=== PATIENT | female | born 1980 | race Caucasian/White ===

== ENCOUNTER 2017-04-25 00:09 | Inpatient (IN) | payer BC ==
[2017-04-25 00:10] VITALS: BMI 33.8
[2017-04-25] MEDS ORDERED: Piperacill/Tazo 4.5gm in NS 4.5 GM/100 ML BAG IVPB STA (00:55)
[2017-04-25 02:18] LABS: BASO # 0.01 K/mm3 (0.0-2.0); BASO % 0.1 % (0.0-3.0); EOS % 0.2 % (1.5-5.0); GRAN # 18.86 (1.4-6.5); GRAN % 95.5 % (50.0-68.0); HEMATOCRIT 41.5 % (36.0-48.0); LYMPH # 0.6 (1.2-3.4); MEAN CORPUSCULAR HEMOGLOBIN 29.5 pg (25.0-35.0); MEAN CORPUSCULAR HGB CONC 34.7 g/dl (31.0-37.0); MEAN PLATELET VOLUME 10.1 fl (7.0-11.0); MONO # 0.2 (0.1-0.6); MONO % 1.2 % (1.0-6.0); PLATELET COUNT 291 10^3/uL (120.0-450.0); RED CELL DISTRIBUTION WIDTH 13.8 % (11.5-14.5); WHITE BLOOD COUNT 19.7 10^3/ul (4.5-11.0)
[2017-04-25 02:25] LABS: VENOUS BLOOD GAS BASE EXCESS -1.5 mmol/L (0.0-2.0); VENOUS BLOOD PH 7.37 (7.32-7.43)
[2017-04-25 02:34] LABS: INR 0.99 (0.93-1.08)
[2017-04-25 02:37] LABS: ALB/GLOB RATIO 1.4 (1.1-1.8); ALKALINE PHOSPHATASE 76 U/L (38-126); ALT/SGPT 42 U/L (7-56); AST/SGOT 31 U/L (14-36); BILIRUBIN,TOTAL 0.5 mg/dL (0.2-1.3); BLOOD UREA NITROGEN 17 mg/dL (7-21); CALCIUM 9.7 mg/dL (8.4-10.5); CARBON DIOXIDE 23 mmol/L (21-33); GFR AFRICAN-AMERICAN > 60; GLUCOSE,RANDOM 104 mg/dL (70-110); SODIUM 136 mmol/L (132-148); TOTAL PROTEIN 7.3 g/dL (5.8-8.3)
[2017-04-25 02:42] LABS: CHLORIDE 100 mmol/L (98-107)
--- NOTE | 2017-04-25 02:47 | ED PDOC ---
Arrival/HPI - General Chief Complaint: Abdominal Pain Time Seen by Provider: 04/25/17 00:53 - History of Present Illness Narrative History of Present Illness (Text): 04/25/17 02:44 36yo female with fevers, chills, nausea, non-bilious non-bloody vomiting, and watery diarrhea for one day. States her symptoms are accompanied by lower abdominal pain. Patient states she had liposuction procedure 2 weeks ago. No relieving or exacerbating factors. No other complaints. Past Medical History - Provider Review Nursing Documentation Reviewed: Yes - Cardiac Hx Cardiac Disorders: Yes Hx Hypertension: Yes - Pulmonary Hx Respiratory Disorders: No - Neurological Hx Neurological Disorder: No - HEENT Hx HEENT Disorder: No - Renal Hx Renal Disorder: No - Endocrine/Metabolic Hx Endocrine Disorders: No - Hematological/Oncological Hx Blood Disorders: No - Integumentary Hx Dermatological Disorder: No - Musculoskeletal/Rheumatological Hx Musculoskeletal Disorders: No - Gastrointestinal Hx Gastrointestinal Disorders: No - Genitourinary/Gynecological Hx Genitourinary Disorders: No - Psychiatric Hx Psychophysiologic Disorder: No Hx Substance Use: No - Surgical History Other/Comment: laser lipo Family/Social History Family/Social History: Unknown Family HX Smoking Status: Never Smoked Hx Alcohol Use: No Hx Substance Use: No Allergies/Home Meds Allergies/Adverse Reactions: Allergies shrimp Allergy (Verified 05/18/16 10:42) ANAPHYLAXIS seafood Allergy (Uncoded 05/18/16 10:42) ANAPHYLAXIS Home Medications: Home Meds Medication Instructions Recorded Confirmed Hydrocodone/Acetaminophen [[place] 1 each PO Q6H PRN 04/25/17 04/25/17 10-325 Tablet] Physical Exam - Physical Exam Narrative Physical Exam (Text): - Review of Systems Constitutional: fevers, chills. absent: Fatigue, Weight Change Eyes: Normal ENT: denies sore throat, denies tristhmus Respiratory: Normal. absent: SOB, Cough, Sputum Cardiovascular: absent: Chest Pain, Palpitations, Syncope Gastrointestinal: Abdominal Pain, Diarrhea, Nausea, Vomiting Genitourinary: Normal. absent: Dysuria, Frequency, Hematuria, vaginal bleeding Musculoskeletal: Normal. absent: Arthralgias, Back Pain, Neck Pain Skin: no rashes, no erythema Neurological: absent: Focal Weakness Endocrine: Normal Hemo/Lymphatic: Normal Psychiatric: No suicidal or homicidal ideations Physical exam Patient appears age appropriate in no distress, speaking full sentences without difficulty - Systems Exam Head: Present: Atraumatic, Normocephalic Pupils: Present: PERRL Extroacular Muscles: Present: EOMI Conjunctiva: Present: Normal Mouth: Present: Moist Mucous Membranes Neck: Present: Normal Range of Motion. No: MIDLINE TENDERNESS, Paraspinal Tenderness Respiratory/Chest: Present: Clear to Auscultation, Good Air Exchange. No: Respiratory Distress, Accessory Muscle Use, Tachypneic Cardiovascular: Present: Regular Rate and Rhythm, Normal S1, S2, Peripheal Pulses Present. No: Murmurs Abdomen: Present: Diffusely tender abdomen, mostly in the lower quadrants. LLQ with a draining pustule. No: Distention, Peritoneal Signs, Rebound, Guarding Back: Present: Normal Inspection. No: Midline Tenderness, Paraspinal Tenderness Upper Extremity: Present: Normal Inspection. No: Cyanosis, Edema Lower Extremity: Present: Normal Inspection. No: Edema Neurological: Present: GCS=15, Speech Normal, cranial nerves II through XII fully intact with no cerebellar abnormality, neurosensory fully intact. No focal neurological deficits. Skin: Present: Warm, Dry, Normal Color. No: Rashes Lymphatic: Present: OX3, NI, NC Psychiatric: Present: Alert, Oriented x 3, Normal Insight, Normal Concentration Vital Signs Reviewed: Yes Vital Signs Temp Pulse Resp BP Pulse Ox 04/25/17 06:31 104 H 16 112/70 97 04/25/17 05:27 97.6 F 103 H 18 118/69 100 04/25/17 04:10 99.0 F 112 H 16 106/58 L 98 04/25/17 02:00 107 H 16 118/76 99 04/25/17 00:34 102.5 F H 123 H 22 122/80 99 Temperature: Febrile Pulse: Tachycardic Respiratory Rate: Normal Appearance: Positive for: Non-Toxic Pain Distress: Mild Mental Status: Positive for: Alert and Oriented X 3 Medical Decision Making ED Course and Treatment: 04/25/17 02:51 36yo female, recent liposuction surgery, with fevers, chills, fever and tachycardia. pt has diffuse abd tenderness to palpation abx, fluids, tylenol, labs, imaging ordered pt's lactate high, leukocytosis also noted 04/25/17 02:28: code sepsis called ct pending CT Abdomen and Pelvis With Intravenous Contrast IMPRESSION: 1. Abdominal wall collection. DDX: Seroma, resolving hematoma, abscess. Clinical correlation is needed. 2. Partial bowel malrotation. 3. Incidental/non-acute findings are described above. Dictated and Authenticated by: Chandler Baker MD 04/25/2017 5:41 AM Eastern Time ([place] & [place]) 04/25/17 05:52: Dr. Mendoza and ophthalmic surgical assistant nate. 04/25/17 06:33 seen by ophthalmic surgical assistant meredith Mendoza in detail, recommends vanc as well. states to admit to service Dr. Jadyn sullivan, awaiting callback pt's fever decreased LA trending down 04/25/17 06:[address] Salamanca, accepted pt to her service, asked for Dr. Montes consult pt aware of and agrees with plan - Lab Interpretations Lab Results: 04/25/17 01:30 04/25/17 01:30 Lab Results 04/25/17 04:41: pO2 71 H, VBG pH 7.37, VBG pCO2 41.0, VBG HCO3 23.7, VBG Total CO2 25.0, VBG O2 Sat (Calc) 96.2 H, VBG Base Excess -1.5 L, VBG Potassium 3.5 L , Sodium 135.0, Chloride 103.0, Glucose 109 H, Lactate 2.9 H, FiO2 21.0, Venous Blood Potassium 3.5 L 04/25/17 01:30: Sodium 136, Chloride 100, Potassium 4.0, Carbon Dioxide 23, Anion Gap 17, BUN 17, Creatinine 1.0, Est GFR ( Amer) > 60, Est GFR (Non- Af Amer) > 60, Random Glucose 104, Calcium 9.7, Total Bilirubin 0.5, AST 31, ALT 42, Alkaline Phosphatase 76, Total Protein 7.3, Albumin 4.2, Globulin 3.1, Albumin/Globulin Ratio 1.4 04/25/17 01:30: pO2 60 H, VBG pH 7.37, VBG pCO2 41.0, VBG HCO3 23.7, VBG Total CO2 25.0, VBG O2 Sat (Calc) 93.9 H, VBG Base Excess -1.5 L, VBG Potassium 4.1, Sodium 135.0, Chloride 102.0, Glucose 109 H, Lactate 3.3 H, FiO2 21.0, Venous Blood Potassium 4.1 04/25/17 01:30: PT 10.7, INR 0.99, APTT 22.0 L 04/25/17 01:30: WBC 19.7 H, RBC 4.88, Hgb 14.4, Hct 41.5, MCV 85.0, MCH 29.5, MCHC 34.7, RDW 13.8, Plt Count 291, MPV 10.1, Gran % 95.5 H, Lymph % (Auto) 3.0 L, [place] % (Auto) 1.2, Eos % (Auto) 0.2 L, Baso % (Auto) 0.1, Gran # 18.86 H, Lymph # 0.6 L, [place] # 0.2, Eos # 0.0, Baso # 0.01, Neutrophils % (Manual) 90 H, Band Neutrophils % 4 H, Lymphocytes % (Manual) 4 L, Monocytes % (Manual) 1, Eosinophils % (Manual) 1, Platelet Evaluation Normal - RAD Interpretation Radiology Orders: 04/25/17 00:54 ABD & PELVIS IV CONTRAST ONLY [CT] Stat 04/25/17 00:55 CHEST PORTABLE [RAD] Stat - Medication Orders Current Medication Orders: Vancomycin HCl (Vancomycin 1gm) 1 gm in 250 mls @ 133.333 mls/hr IVPB STAT STA PRN Reason: Protocol Stop: 04/25/17 08:22 Discontinued Medications Acetaminophen (Tylenol 325mg Tab) 975 mg PO STAT STA Stop: 04/25/17 00:55 Last Admin: 04/25/17 01:57 Dose: 975 mg Re-Assess: JAZ Pain/Vitals Document 04/25/17 02:57 SC (Rec: 04/25/17 03:51 SC [id number]) Pain Reassessment Is This A Pain ReAssessment? No Hydromorphone HCl (Dilaudid) 0.5 mg IVP STAT STA Stop: 04/25/17 06:23 Last Admin: 04/25/17 06:28 Dose: 0.5 mg Hydromorphone HCl (Dilaudid) Confirm Administered Dose 1 mg .ROUTE .STK-MED ONE Stop: 04/25/17 06:26 Last Admin: 04/25/17 06:29 Dose: Piperacillin Sod/Tazobactam Sod (Zosyn 4.5 Gm In Ns 100ml) 4.5 gm in 100 mls @ 200 mls/hr IVPB STAT STA PRN Reason: Protocol Stop: 04/25/17 01:24 Last Admin: 04/25/17 01:58 Dose: 200 mls/hr Sodium Chloride (Sodium Chloride 0.9%) 3,000 mls @ 3,000 mls/hr IV .Q1H STA Stop: 04/25/17 04:52 Last Admin: 04/25/17 03:50 Dose: 3,000 mls/hr Iohexol (Omnipaque 350 100 Ml) Confirm Administered Dose 350 mg .ROUTE .STK-MED ONE Stop: 04/25/17 03:10 Ketorolac Tromethamine (Toradol) 30 mg IVP STAT STA Stop: 04/25/17 00:55 Last Admin: 04/25/17 01:57 Dose: 30 mg Re-Assess: [facility] Pain Assessment Document 04/25/17 02:57 SC (Rec: 04/25/17 03:51 SC [id number]) Pain Reassessment Is this a pain reassessment? Yes Sleep Is patient sleeping during reassessment? No Presence of Pain Presence of Pain Yes Pain Scale Used Pain Scale Used Numeric Description Description Intermittent Intensity of Pain at present 2 Acceptable Level of Pain 2 Morphine Sulfate (Morphine) 8 mg IVP STAT STA Stop: 04/25/17 04:23 Last Admin: 04/25/17 05:25 Dose: 8 mg Ondansetron HCl (Zofran Inj) 4 mg IVP STAT STA Stop: 04/25/17 01:49 Last Admin: 04/25/17 01:58 Dose: 4 mg Disposition/Present on Arrival - Present on Arrival Any Indicators Present on Arrival: No History of DVT/PE: No History of Uncontrolled Diabetes: No Urinary Catheter: No History of Decub. Ulcer: No History Surgical Site Infection Following: None - Disposition Have Diagnosis and Disposition been Completed?: Yes Diagnosis: Sepsis Disposition: HOSPITALIZED Disposition Time: 06:38 Patient Plan: Admission Condition: FAIR Discharge Instructions (ExitCare): Sepsis (ED) Forms: [employer] ([place])
[2017-04-25 03:00] LABS: BAND 4 % (0-2); EOSINOPHIL 1 % (0.0-3.0); NEUTROPHIL 90 % (50.0-70.0); PLATELET ESTIMATE NORMAL (NORMAL)
[2017-04-25] MEDS ORDERED: Iohexol 350 MG/100 ML VIAL ONE (03:09)
[2017-04-25] MEDS ORDERED: Sodium Chloride 0.9% 3,000 ML IV STA (03:53)
[2017-04-25 04:55] LABS: VENOUS BLOOD GAS BASE EXCESS -1.5 mmol/L (0.0-2.0); VENOUS BLOOD PH 7.37 (7.32-7.43)
--- NOTE | 2017-04-25 05:41 | CT ---
EXAM: CT Abdomen and Pelvis With Intravenous Contrast CLINICAL HISTORY: 36 years old, female; Pain; Abdominal pain; Generalized; Additional info: Abd pain, f/c/n/v, recent surgery TECHNIQUE: Axial computed tomography images of the abdomen and pelvis with intravenous contrast. All CT scans at this facility use one or more dose reduction techniques, viz.: automated exposure control; ma/kV adjustment per patient size (including targeted exams where dose is matched to indication; i.e. head); or iterative reconstruction technique. Coronal and sagittal reformatted images were created and reviewed. CONTRAST: 96 mL of omni 350 administered intravenously. COMPARISON: No relevant prior studies available. FINDINGS: Lower thorax: Minimal atelectasis. ABDOMEN: Liver: Unremarkable. No mass. Gallbladder and bile ducts: Cholecystectomy. No significant ductal dilation. Pancreas: No ductal dilation. No mass. Spleen: No splenomegaly. Adrenals: No mass. Kidneys and ureters: Few too small to characterize lesions within kidneys. No hydronephrosis. Stomach and bowel: Duodenum does not cross midline. No definite mural thickening. No obstruction. Appendix: Normal caliber. No inflammation. PELVIS: Bladder: Unremarkable. Reproductive: Small ovarian follicles. ABDOMEN and PELVIS: Intraperitoneal space: No significant fluid collection. No free air. Bones/joints: No acute fracture. Soft tissues: [id number] linear stranding within this abdominal hanson. Elongated, curvilinear peripherally enhancing fluid collection within anterior/lateral abdominal hanson, roughly 33 x 3 x 2 cm. Vasculature: Unremarkable. No aneurysm. Lymph nodes: No pathologically enlarged lymph nodes. IMPRESSION: 1. Abdominal wall collection. DDX: Seroma, resolving hematoma, abscess. Clinical correlation is needed. 2. Partial bowel malrotation. 3. Incidental/non-acute findings are described above.
[2017-04-25] MEDS ORDERED: HYDROmorphone 0.5 mg/0.5 ml ISec IVP STA (06:22)
[2017-04-25] MEDS ORDERED: HYDROmorphone 1 mg/ml ISec ONE (06:25)
[2017-04-25] MEDS ORDERED: Vancomycin 1gm in NS 250ml 1 GM/250 ML BAG IVPB STA (06:30)
--- NOTE | 2017-04-25 06:36 | CP.PCM.CON ---
History of Present Illness - History of Present Illness History of Present Illness: Gen Surgery Consult for Dr. Mendoza: Patient is a 36 year old female with a pmh of HTN presented to the ED with the complaint of nausea, vomiting, diarrhea, abdominal pain, fever and chills that began yesterday. Three weeks ago the patient had a laser liposuction procedure of her abdomen and back by Dr. Jase Thomas in [place], [place]. She has had no problems related to the procedure until yesterday while she was in class. Patient reports pus draining from the LLQ incision site and intermittent fevers for 2 days. She has never had a pain like this before. Patient has been tolerating her diet, has been having flatulence and denies abdominal distention. Review of Systems - Review of Systems Review of Systems: As per HPI Past Patient History - Past Social History Smoking Status: Never Smoked - CARDIAC Hx Cardiac Disorders: Yes Hx Hypertension: Yes - PULMONARY Hx Respiratory Disorders: No - NEUROLOGICAL Hx Neurological Disorder: No - HEENT Hx HEENT Problems: No - RENAL Hx Chronic Kidney Disease: No - ENDOCRINE/METABOLIC Hx Endocrine Disorders: No - HEMATOLOGICAL/ONCOLOGICAL Hx Blood Disorders: No - INTEGUMENTARY Hx Dermatological Problems: No - MUSCULOSKELETAL/RHEUMATOLOGICAL Hx Musculoskeletal Disorders: No - GASTROINTESTINAL Hx Gastrointestinal Disorders: No - GENITOURINARY/GYNECOLOGICAL Hx Genitourinary Disorders: No - PSYCHIATRIC Hx Psychophysiologic Disorder: No Hx Substance Use: No - SURGICAL HISTORY Other/Comment: laser lipo Meds Allergies/Adverse Reactions: Allergies Allergy/AdvReac Type Severity Reaction Status Date / Time shrimp Allergy ANAPHYLAXIS Verified 05/18/16 10:42 seafood Allergy ANAPHYLAXIS Uncoded 05/18/16 10:42 Physical Exam - Constitutional Additional comments: Uncomfortable - Eye Exam Eye Exam: EOMI, PERRL - ENT Exam ENT Exam: Mucous Membranes Dry - Respiratory Exam Respiratory Exam: Clear to Auscultation Bilateral, NORMAL BREATHING PATTERN - Cardiovascular Exam Cardiovascular Exam: Tachycardia - GI/Abdominal Exam GI & Abdominal Exam: Guarding, Soft, Tenderness. absent: Distended, Firm, Rebound, Rigid Additional comments: Purulent fluid draining from left lower abd incision - Extremities Exam Extremities exam: Negative for: pedal edema, tenderness - Back Exam Back exam: tenderness - Neurological Exam Neurological exam: Alert, Oriented x3 - Skin Skin Exam: Dry, Intact, Normal Color, Warm Results - Vital Signs Recent Vital Signs: Last Vital Signs Temp 97.6 F 04/25/17 05:27 Pulse 103 H 04/25/17 05:27 Resp 18 04/25/17 05:27 BP 118/69 04/25/17 05:27 Pulse Ox 100 04/25/17 05:27 - Labs Result Diagrams: 04/25/17 01:30 04/25/17 01:30 Labs: Laboratory Results - last 24 hr 04/25/17 04/25/17 04/25/17 01:30 01:30 01:30 WBC 19.7 H RBC 4.88 Hgb 14.4 Hct 41.5 MCV 85.0 MCH 29.5 MCHC 34.7 RDW 13.8 Plt Count 291 MPV 10.1 Gran % 95.5 H Lymph % (Auto) 3.0 L [place] % (Auto) 1.2 Eos % (Auto) 0.2 L Baso % (Auto) 0.1 Gran # 18.86 H Lymph # 0.6 L [place] # 0.2 Eos # 0.0 Baso # 0.01 Neutrophils % (Manual) 90 H Band Neutrophils % 4 H Lymphocytes % (Manual) 4 L Monocytes % (Manual) 1 Eosinophils % (Manual) 1 Platelet Evaluation Normal PT 10.7 INR 0.99 APTT 22.0 L pO2 60 H VBG pH 7.37 VBG pCO2 41.0 VBG HCO3 23.7 VBG Total CO2 25.0 VBG O2 Sat (Calc) 93.9 H VBG Base Excess -1.5 L VBG Potassium 4.1 Sodium 135.0 Chloride 102.0 Glucose 109 H Lactate 3.3 H FiO2 21.0 Potassium Carbon Dioxide Anion Gap BUN Creatinine Est GFR ( Amer) Est GFR (Non-Af Amer) Random Glucose Calcium Total Bilirubin AST ALT Alkaline Phosphatase Total Protein Albumin Globulin Albumin/Globulin Ratio Venous Blood Potassium 4.1 04/25/17 04/25/17 01:30 04:41 WBC RBC Hgb Hct MCV MCH MCHC RDW Plt Count MPV Gran % Lymph % (Auto) [place] % (Auto) Eos % (Auto) Baso % (Auto) Gran # Lymph # [place] # Eos # Baso # Neutrophils % (Manual) Band Neutrophils % Lymphocytes % (Manual) Monocytes % (Manual) Eosinophils % (Manual) Platelet Evaluation PT INR APTT pO2 71 H VBG pH 7.37 VBG pCO2 41.0 VBG HCO3 23.7 VBG Total CO2 25.0 VBG O2 Sat (Calc) 96.2 H VBG Base Excess -1.5 L VBG Potassium 3.5 L Sodium 136 135.0 Chloride 100 103.0 Glucose 109 H Lactate 2.9 H FiO2 21.0 Potassium 4.0 Carbon Dioxide 23 Anion Gap 17 BUN 17 Creatinine 1.0 Est GFR ( Amer) > 60 Est GFR (Non-Af Amer) > 60 Random Glucose 104 Calcium 9.7 Total Bilirubin 0.5 AST 31 ALT 42 Alkaline Phosphatase 76 Total Protein 7.3 Albumin 4.2 Globulin 3.1 Albumin/Globulin Ratio 1.4 Venous Blood Potassium 3.5 L Assessment & Plan - Assessment and Plan (Free Text) Assessment: 36F with abdominal wall abscesses 2/2 infected surgical site, from liposuction 3 weeks ago in [place]. Plan: - CT shows abdominal wall collection: abdominal abscess - Start IV Abx for 24 hours - IV Fluids - Pain control discussed with Dr. Reji Lin, PGY2
[2017-04-25] MEDS: Sodium Chloride 0.9% 1,000 ML IV SCH (07:20)
[2017-04-25] MEDS: Vancomycin 1gm in NS 250ml 1 GM/250 ML BAG IVPB SCH ×2 (08:05→20:33)
[2017-04-25] MEDS ORDERED: HYDROCODONE PO PRN (08:59)
[2017-04-25] MEDS ORDERED: ACETAMINOPHEN PO PRN (08:59)
--- NOTE | 2017-04-25 09:43 | RAD ---
HISTORY: f/v COMPARISON: 05/18/2016 FINDINGS: LUNGS: No active pulmonary disease. PLEURA: No significant pleural effusion identified, no pneumothorax apparent. CARDIOVASCULAR: Normal. OSSEOUS STRUCTURES: No significant abnormalities. VISUALIZED UPPER ABDOMEN: Normal. OTHER FINDINGS: None. IMPRESSION: No active disease.
[2017-04-25] MEDS ORDERED: Piperacillin/Tazobact 3.375 gm 100 ML IVPB SCH (12:00)
[2017-04-25] MEDS: Meropenem 1g/NS 100mL IVPB 1 GM/100 ML PIGGYBACK IVPB SCH ×2 (13:39→23:02)
[2017-04-25] MEDS ORDERED: Pneumococcal 23-Valent Vaccine IM ONE (13:41)
--- NOTE | 2017-04-25 20:24 | CON ---
DATE: 04/25/2017 CHIEF COMPLIANT: Abdominal pain times several days. HISTORY OF PRESENT ILLNESS: This is a 36-year-old female with obesity with a BMI of 33, with hypertension, hyperlipidemia and history of cholecystectomy, who has, 3 weeks ago, had surgery in [place]. She states she had laser liposuction procedure by Dr. Jase Thomas in [place], [place] and she was fine in several days. She had not been feeling well with abdominal discomfort, fevers and chills. She denies any chest pain. No headaches. No blurred vision. No dysuria or frequency. No cough. No hemoptysis. She did have non bilious, non bloody vomiting. She did have diarrhea. She did have fevers, chills and nausea. PAST MEDICAL HISTORY: Significant for hypertension, hyperlipidemia and obesity with BMI of 33. PAST SURGICAL HISTORY: Significant for cholecystectomy. ALLERGIES: THE PATIENT IS ALLERGIC TO SHRIMP. MEDICATIONS: She takes at home include hydrocodone and acetaminophen. PHYSICAL EXAMINATION: GENERAL: She is in bed. She is seen in the emergency room. VITAL SIGNS: Temperature of 102.5, heart rate of 112, respiratory rate of 18 was up to 22, blood pressure is 106/50. HEENT: Unremarkable. NECK: Supple. LUNGS: Decreased breath sounds. HEART: Normal S1 and S2. ABDOMEN: Tender. No rebound or guarding erythema. LABORATORY EXAMINATION: Reveals a white count 19,700, 95% granulocytosis and 4% bandemia. Coagulation is noted. Blood gases are reviewed. Chemistries are normal. Microbiology is pending. The patient had a CAT scan of the abdomen and pelvis, which revealed abdominal wall collection and abscess, and Dr. Martin Mendoza's consultation from yesterday is reviewed. I see her conclusion is that the patient is a 36-year-old female with abdominal wall abscess, infected surgical site and her plan is to IV fluids and antibiotics and pain control. Dr. Mata Bueno's emergency chart is reviewed. ASSESSMENT AND PLAN: This is a 36-year-old obese female, body mass index of 33 with hypertension, hyperlipidemia, history of cholecystectomy, status post liposuction 3 weeks ago, now presenting with sepsis, fever, tachycardia, leukocytosis and a CAT scan consistent with an abscess with sepsis, with abdominal wall collection and abscess, status post liposuction 3 weeks ago. We will start the patient on vancomycin and meropenem pending blood cultures and urine cultures. There is no drain from the wound. There is no open wound. Small incision site is present on the left lower quadrant, but there is no drainage. Awaiting for surgical intervention and we will continue the antibiotics. We will order an HIV because of her age of 36 and pending culture results and surgical input. Quinn Montes MD
[2017-04-25] MEDS: HYDROmorphone 1 mg/ml ISec IVP PRN (20:28)
--- NOTE | 2017-04-25 22:23 | CP.PCM.HP ---
<Shell Perea - Last Filed: 04/25/17 22:19> History of Present Illness - History of Present Illness History of Present Illness: Patient is a 36 yo F with significant PMH for HTN who presents for increasing abdominal pain associated with nausea, vomiting, diarrhea, fever, and chills that began yesterday. She reports having laser liposuction procedure by a physician in [place] 3 weeks ago, and was doing well until yesterday. Patient additionally noticed pus draining from one of her incision sites in the LLQ yesterday. She denies any other complains at this time. Patient was seen in the ED where she was found to be febrile, and received analgesics, fluids, labs, and had an abdominal CT. WBC = 19.7, lactate = 3.3, and CT showed abdominal wall collection with possible abscess . Surgical team was consulted who managed pain control, and she was also seen by ID team who started Vancomycin and Meropenem. Blood, urine, and wound cultures were obtained and are now pending. PMH: HTN PSH: Laser liposuction Meds: Norvasc, Hydrocodone/Acetaminophen All: shrimp & seafood allergy Social hx: - no smoking - social EtOH, last was yesterday - is currently a student FamHx: Non-contributory Present on Admission - Present on Admission Any Indicators Present on Admission: No Review of Systems - Review of Systems All systems: reviewed and no additional remarkable complaints except Review of Systems: As per HPI Past Patient History - Past Social History Smoking Status: Never Smoked - CARDIAC Hx Cardiac Disorders: Yes Hx Hypercholesterolemia: Yes Hx Hypertension: Yes - PULMONARY Hx Respiratory Disorders: No - NEUROLOGICAL Hx Neurological Disorder: No - HEENT Hx HEENT Problems: No - RENAL Hx Chronic Kidney Disease: No - ENDOCRINE/METABOLIC Hx Endocrine Disorders: No - HEMATOLOGICAL/ONCOLOGICAL Hx Blood Disorders: No - INTEGUMENTARY Hx Dermatological Problems: Yes Other/Comment: 04-25-17 POST LASER LIPOSUCTION-INCISION TO MID ABDOMINAL AREA, LLQ + PUS. - MUSCULOSKELETAL/RHEUMATOLOGICAL Hx Musculoskeletal Disorders: No Hx Falls: No - GASTROINTESTINAL Hx Gastrointestinal Disorders: Yes Hx Gall Bladder Disease: Yes (CHOLECYSTECTOMY) - GENITOURINARY/GYNECOLOGICAL Hx Genitourinary Disorders: Yes (LASER ABDOMINAL LIPOSUCTION APRIL 04 2017) Other/Comment: 5 ABORTIONS. - PSYCHIATRIC Hx Psychophysiologic Disorder: No Hx Substance Use: No - SURGICAL HISTORY Hx Surgeries: Yes Hx Cholecystectomy: Yes Other/Comment: laser lipo Meds Allergies/Adverse Reactions: Allergies Allergy/AdvReac Type Severity Reaction Status Date / Time shrimp Allergy ANAPHYLAXIS Verified 04/25/17 12:05 seafood Allergy ANAPHYLAXIS Uncoded 04/25/17 12:05 Physical Exam - Constitutional Appears: Non-toxic, In Acute Distress - Head Exam Head Exam: ATRAUMATIC, NORMAL INSPECTION, NORMOCEPHALIC - Eye Exam Eye Exam: EOMI, Normal appearance - Respiratory Exam Respiratory Exam: Clear to Auscultation Bilateral. absent: Rales, Rhonchi, Wheezes - Cardiovascular Exam Cardiovascular Exam: Tachycardia, REGULAR RHYTHM, +S1, +S2 - GI/Abdominal Exam Additional comments: There is a 1 cm incision to the LLQ that is not actively draining, with no surrounding erythema, covered in a dressing that is clean and dry. Lower abdominal tenderness - Extremities Exam Extremities exam: Negative for: pedal edema - Neurological Exam Neurological exam: Alert, Oriented x3 - Psychiatric Exam Psychiatric exam: Normal Affect, Normal Mood - Skin Skin Exam: Dry, Intact, Normal Color, Warm Results - Vital Signs Recent Vital Signs: Last Vital Signs Temp 100.7 F H 04/25/17 18:00 Pulse 129 H 04/25/17 18:00 Resp 18 04/25/17 18:00 BP 114/67 04/25/17 18:00 Pulse Ox 97 04/25/17 08:00 - Labs Result Diagrams: 04/25/17 01:30 04/25/17 01:30 Assessment & Plan - Assessment and Plan (Free Text) Assessment: 36 year old female with PMH of HTN, s/p laser liposuction 3 days ago, admitted for post-procedural abdominal pain, wound drainage, and sepsis Plan: 1. Sepsis - monitor VS - WBC 19.7 on admission - ID consulted (Simon) - Tylenol for fever - IV fluids - IV antibiotics (Vancomycin & Meropenem) for prophylaxis -Zofran -Regular Diet 2. Abdominal wound abscess - surgical consult (Reji) - CT abdomen showed abdominal wall collection (seroma vs resolving hematoma vs abscess) - Dilauded 1 Q4 PRN for pain control - wound care 3. H/O HTN - monitor VS - continue home meds Patient seen discussed and reviewed with Attending Shell Perea PGY1 - Date & Time Date: 04/25/17 Time: 22:29 <Bradley STACY,Sonia - Last Filed: 04/28/17 17:49> Results - Vital Signs Recent Vital Signs: Last Vital Signs Temp 98.4 F 04/28/17 12:00 Pulse 94 H 04/28/17 14:00 Resp 19 04/28/17 12:00 BP 127/82 04/28/17 12:00 Pulse Ox 97 04/28/17 06:00 - Labs Result Diagrams: 04/28/17 07:00 04/28/17 07:00 Labs: Laboratory Results - last 24 hr 04/27/17 04/27/17 04/28/17 17:35 17:35 07:00 WBC 22.5 H RBC 4.03 Hgb 11.6 L Hct 33.9 L MCV 84.1 MCH 28.8 MCHC 34.2 RDW 14.4 Plt Count 190 MPV 10.7 Sodium Potassium Chloride Carbon Dioxide Anion Gap BUN Creatinine Est GFR ( Amer) Est GFR (Non-Af Amer) Random Glucose Calcium NT-Pro-B Natriuret Pep 3100 H Procalcitonin 4.53 H 04/28/17 07:00 WBC RBC Hgb Hct MCV MCH MCHC RDW Plt Count MPV Sodium 141 Potassium 3.3 L Chloride 103 Carbon Dioxide 25 Anion Gap 16 BUN 9 Creatinine 1.0 Est GFR ( Amer) > 60 Est GFR (Non-Af Amer) > 60 Random Glucose 105 Calcium 9.0 NT-Pro-B Natriuret Pep Procalcitonin Attending/Attestation - Attestation I have personally seen and examined this patient.: Yes I have fully participated in the care of the patient.: Yes I have reviewed all pertinent clinical information: Yes Notes (Text): 04/28/17 17:47 Patient was seen and examined with medical secretary teacher. Agreed with resident assessment and plan. 36 old female with PMH of recent liposuction is admitted with sepsis due to abdominal wall abscess,She is on IV Vancomycin and Meropenem as Per ID, Surgery has evaluated the patient and plan for Possible I/D in am.We will follow up cultures. Management plan was discussed in detail with patient Education was provided.
[2017-04-26] MEDS: Sodium Chloride 0.9% 1,000 ML IV SCH ×5 (00:01→23:34)
[2017-04-26] MEDS: Meropenem 1g/NS 100mL IVPB 1 GM/100 ML PIGGYBACK IVPB SCH ×3 (05:09→22:31)
[2017-04-26] MEDS: Vancomycin 1gm in NS 250ml 1 GM/250 ML BAG IVPB SCH (07:59)
[2017-04-26 08:20] LABS: HEMATOCRIT 33.4 % (36.0-48.0); MEAN CELL VOLUME 86.1 fl (80.0-105.0); MEAN CORPUSCULAR HEMOGLOBIN 28.9 pg (25.0-35.0); MEAN CORPUSCULAR HGB CONC 33.5 g/dl (31.0-37.0); MEAN PLATELET VOLUME 9.8 fl (7.0-11.0); RED CELL DISTRIBUTION WIDTH 14.6 % (11.5-14.5); WHITE BLOOD COUNT 20.9 10^3/ul (4.5-11.0)
[2017-04-26 08:27] LABS: CALCIUM 7.8 mg/dL (8.4-10.5); POTASSIUM 3.8 mmol/L (3.6-5.0)
--- NOTE | 2017-04-26 08:36 | CP.PCM.PN ---
Subjective - Date & Time of Evaluation Date of Evaluation: 04/26/17 Time of Evaluation: 08:33 - Subjective Subjective: General Surgery Progress note for Dr. Mendoza Patient states she has had a temperature of 103.2F overnight. Patient is currently afebrile. Patient denies nausea, vomiting. Patient states she does not feel better. Patient admits to abdominal pain. Objective - Vital Signs/Intake and Output Vital Signs (last 24 hours): Temp Pulse Resp BP Pulse Ox 99 F 105 H 20 110/65 100 04/26/17 06:00 04/26/17 06:00 04/26/17 06:00 04/26/17 06:00 04/26/17 06:00 Intake and Output: 04/26/17 04/26/17 06:59 18:59 Intake Total 1460 1900 Output Total 0 Balance 1460 1900 - Medications Medications: Current Medications Acetaminophen (Tylenol 325mg Tab) 650 mg PO Q6H PRN PRN Reason: Fever >100.4 F Last Admin: 04/25/17 23:41 Dose: 650 mg Hydromorphone HCl (Dilaudid) 1 mg IVP Q4H PRN PRN Reason: Pain, severe (8-10) Last Admin: 04/25/17 20:28 Dose: 1 mg Sodium Chloride (Sodium Chloride 0.9%) 1,000 mls @ 100 mls/hr IV .Q10H OLIVIA Last Admin: 04/26/17 00:01 Dose: 100 mls/hr Meropenem 1g/NS 100mL IVPB (Meropenem 1g/Ns 100ml Ivpb) 1 gm in 100 mls @ 100 mls/hr IVPB Q8 OLIVIA PRN Reason: Protocol Stop: 05/03/17 14:01 Last Admin: 04/26/17 05:09 Dose: 100 mls/hr Vancomycin HCl (Vancomycin 1gm) 1 gm in 250 mls @ 167 mls/hr IVPB Q12H OLIVIA PRN Reason: Protocol Stop: 05/04/17 07:31 Last Admin: 04/26/17 07:59 Dose: 167 mls/hr Hydrocodone/Acetaminophen [[place] 10-325 Tablet] 1 each PO Q6H PRN PRN Reason: Pain, moderate (4-7) Ondansetron HCl (Zofran Inj) 4 mg IVP Q6 PRN PRN Reason: Nausea/Vomiting - Labs Labs: 04/26/17 08:11 PT 10.7 Seconds (9.9-11.8) 04/25/17 01:30 INR 0.99 (0.93-1.08) 04/25/17 01:30 APTT 22.0 Seconds (23.7-30.8) L 04/25/17 01:30 - Constitutional Appears: Non-toxic - Head Exam Head Exam: NORMAL INSPECTION - Eye Exam Eye Exam: EOMI, Normal appearance - ENT Exam ENT Exam: Mucous Membranes Moist - Neck Exam Neck Exam: Full ROM, Normal Inspection - Respiratory Exam Respiratory Exam: Clear to Ausculation Bilateral, NORMAL BREATHING PATTERN. absent: Accessory Muscle Use, Respiratory Distress - Cardiovascular Exam Cardiovascular Exam: Tachycardia, REGULAR RHYTHM. absent: Bradycardia - GI/Abdominal Exam GI & Abdominal Exam: Soft, Tenderness. absent: Distended, Firm, Guarding, Rebound Additional comments: Patient has mild tenderness near sites of entry from the liposuction procedure. - Extremities Exam Extremities Exam: Full ROM, Normal Inspection. absent: Calf Tenderness, Pedal Edema - Neurological Exam Neurological Exam: Alert, Awake, Oriented x3 - Psychiatric Exam Psychiatric exam: Normal Affect, Normal Mood - Skin Skin Exam: Dry, Intact, Normal Color, Warm Assessment and Plan - Assessment and Plan (Free Text) Assessment: 36F presents with post op complications from laser liposuction POD#4 Plan: c/w pain control IVF IV abx CT showed abdominal wall collection, abdominal abscess consider drainage when collections consolidate more Amanda Betancourt, DO PGY1
[2017-04-26] MEDS: HYDROmorphone 1 mg/ml ISec IVP PRN ×2 (11:07→19:49)
[2017-04-26] MEDS: Linezolid 600 mg in D5W 300 ml 600 MG/300 ML BAG IVPB SCH ×2 (11:09→23:31)
--- NOTE | 2017-04-26 11:17 | CP.PCM.PN ---
Subjective - Date & Time of Evaluation Date of Evaluation: 04/26/17 Time of Evaluation: 07:55 - Subjective Subjective: Patient seen and examined at bedside. Had fevers with tmax of 103.2 last night. Still complains of left sided abdominal pain. Denies any cough or dysuria. Denies any other complaints. Review of Systems - Review of Systems All systems: reviewed and no additional remarkable complaints except - Constitutional Constitutional: Fever. absent: Chills - EENT Eyes: absent: Blurred Vision Ears: absent: Dizziness - Cardiovascular Cardiovascular: absent: Chest Pain, Dyspnea - Respiratory Respiratory: absent: Cough, Dyspnea - Gastrointestinal Gastrointestinal: Abdominal Pain. absent: Nausea, Vomiting - Genitourinary Genitourinary: absent: Dysuria - Musculoskeletal Musculoskeletal: absent: Back Pain - Neurological Neurological: absent: Weakness - Psychiatric Psychiatric: absent: Anxiety Objective - Vital Signs/Intake and Output Vital Signs (last 24 hours): Temp Pulse Resp BP Pulse Ox 99 F 105 H 20 110/65 100 04/26/17 06:00 04/26/17 06:00 04/26/17 06:00 04/26/17 06:00 04/26/17 06:00 Intake and Output: 04/26/17 04/26/17 06:59 18:59 Intake Total 1460 1900 Output Total 0 Balance 1460 1900 - Medications Medications: Current Medications Acetaminophen (Tylenol 325mg Tab) 650 mg PO Q6H PRN PRN Reason: Fever >100.4 F Last Admin: 04/25/17 23:41 Dose: 650 mg Hydromorphone HCl (Dilaudid) 1 mg IVP Q4H PRN PRN Reason: Pain, severe (8-10) Last Admin: 04/25/17 20:28 Dose: 1 mg Sodium Chloride (Sodium Chloride 0.9%) 1,000 mls @ 100 mls/hr IV .Q10H OLIVIA Last Admin: 04/26/17 00:01 Dose: 100 mls/hr Meropenem 1g/NS 100mL IVPB (Meropenem 1g/Ns 100ml Ivpb) 1 gm in 100 mls @ 100 mls/hr IVPB Q8 OLIVIA PRN Reason: Protocol Stop: 05/03/17 14:01 Last Admin: 04/26/17 05:09 Dose: 100 mls/hr Linezolid (Zyvox 600mg/300ml D5w) 600 mg in 300 mls @ 200 mls/hr IVPB Q12 OLIVIA PRN Reason: Protocol Stop: 05/05/17 10:01 Hydrocodone/Acetaminophen [[place] 10-325 Tablet] 1 each PO Q6H PRN PRN Reason: Pain, moderate (4-7) Ondansetron HCl (Zofran Inj) 4 mg IVP Q6 PRN PRN Reason: Nausea/Vomiting - Labs Labs: 04/26/17 08:11 04/26/17 08:11 PT 10.7 Seconds (9.9-11.8) 04/25/17 01:30 INR 0.99 (0.93-1.08) 04/25/17 01:30 APTT 22.0 Seconds (23.7-30.8) L 04/25/17 01:30 - Constitutional Appears: Well, No Acute Distress - Head Exam Head Exam: NORMAL INSPECTION - Eye Exam Eye Exam: EOMI - ENT Exam ENT Exam: Normal Exam - Neck Exam Neck Exam: Full ROM - Respiratory Exam Respiratory Exam: Clear to Ausculation Bilateral. absent: Rales, Wheezes - Cardiovascular Exam Cardiovascular Exam: REGULAR RHYTHM, +S1, +S2 - GI/Abdominal Exam GI & Abdominal Exam: Soft, Tenderness (left sided tenderness). absent: Normal Bowel Sounds, Organomegaly Additional comments: left lower abdomen incision with dressing - Extremities Exam Extremities Exam: Normal Inspection - Neurological Exam Neurological Exam: Alert, Awake, Oriented x3 - Psychiatric Exam Psychiatric exam: Normal Affect, Normal Mood Assessment and Plan - Assessment and Plan (Free Text) Plan: This is a 36 year old female with past medical history of hypertension and recent laser liposuction who presents with abdominal pain and fever. 1. Sepsis - CT abd/pelvis showed abdominal wall collection (seroma vs resolving hematoma vs abscess). Surgery and ID evaluation were appreciated. Continue with iv antibiotics. Will follow up on cultures. If patient remains to have fever consider drainage either by IR or surgery. 2. Leukocytosis - Likely secondary to above. Continue with antibiotics. 3. Hypertension - Her norvasc was initially held due to low pressure on admission. Can resume if hypertension. Continue with protonix for GI prophylaxis and SCDs for DVT prophylaxis.
--- NOTE | 2017-04-26 11:59 | PN ---
DATE: 04/26/2017 SUBJECTIVE: The patient seen bed, in no acute distress, nontoxic with however, she did continue to have fevers yesterday and this morning. She states she is not improving. She still having abdominal discomfort. PHYSICAL EXAMINATION: VITAL SIGNS: On exam, temperature of 102.4, T-max is 103, heart rate of 105, blood pressure is 110/60, and respiratory rate of 20. HEENT: Unremarkable. NECK: Supple. LUNGS: Decreased breath sounds. HEART: Normal S1 and S2. ABDOMEN: Mild tenderness. No rebound or guarding. LABORATORY DATA: Reveals of white of count persistently in the 20,000 this morning, hemoglobin of 11, platelets of 186, BUN of 16, creatinine of 1.3, and the patient's creatinine has increased from 1.0 to 1.3, decrease in his GFR. HIV is negative. Microbiology; abdominal cultures, gram-positive cocci, the blood cultures are negative. Dr. Amanda Betancourt's note is reviewed. ASSESSMENT AND PLAN: This is a 36-year-old female obese female with BMI of 33. History of hypertension, hyperlipidemia, history of cholecystectomy, status post liposuction three weeks ago presenting with now with severe sepsis with acute kidney injury and CAT scan consistent with an abscess. I discussed the case with Dr. Mendoza yesterday, we wanted to watch the patient with antibiotic therapy. Currently with acute kidney injury we will discontinue the vancomycin and start Zyvox. Continue meropenem. Check on the culture the gram positive cocci for small incision site that is still open, and I discussed the case with surgical team. Possibly need for open drainage, they will reconsider. Quinn Montes MD
[2017-04-27] MEDS: Sodium Chloride 0.9% 1,000 ML IV SCH ×3 (00:30→20:19)
[2017-04-27] MEDS: HYDROmorphone 1 mg/ml ISec IVP PRN ×5 (02:41→21:47)
[2017-04-27] MEDS: Meropenem 1g/NS 100mL IVPB 1 GM/100 ML PIGGYBACK IVPB SCH ×3 (05:33→21:47)
[2017-04-27] MEDS: Pantoprazole 40 mg EC Tab PO SCH (05:34)
[2017-04-27 06:46] LABS: HEMATOCRIT 32.5 % (36.0-48.0); MEAN CELL VOLUME 85.8 fl (80.0-105.0); MEAN CORPUSCULAR HEMOGLOBIN 28.5 pg (25.0-35.0); MEAN CORPUSCULAR HGB CONC 33.2 g/dl (31.0-37.0); MEAN PLATELET VOLUME 10.3 fl (7.0-11.0); RED CELL DISTRIBUTION WIDTH 14.4 % (11.5-14.5); WHITE BLOOD COUNT 20.2 10^3/ul (4.5-11.0)
[2017-04-27 07:49] LABS: CALCIUM 8.1 mg/dL (8.4-10.5); POTASSIUM 3.9 mmol/L (3.6-5.0)
--- NOTE | 2017-04-27 09:59 | PN ---
DATE: 04/27/2017 SUBJECTIVE: The patient is seen earlier this morning in room #265, bed #1. The patient continues to have fevers. She is not feeling better. She states she continues to have chills and be weak. PHYSICAL EXAMINATION: VITAL SIGNS: On exam, temperature is 102.9, blood pressure is 145/80, respiratory rate of 18, heart rate of 127, she is saturating at 93%. HEENT: Examination of the HEENT is unremarkable. NECK: Supple. LUNGS: Decreased breath sounds. HEART: Normal S1 and S2. ABDOMEN: Tender. No rebound. No guarding. LABORATORY DATA: Reveals the Gram-positive cocci from the abdominal wound. The blood cultures are negative and white count is 20,000 still this morning, hemoglobin of 10, platelets of 177, 95% granulocytosis and coagulation is noted. BUN of 12, creatinine is 1.3 this morning and HIV is nonreactive. Microbiology noted. ASSESSMENT AND PLAN: This is a 36-year-old female with obesity, body mass index of 33, hypertension, hyperlipidemia, history of cholecystectomy. Admitted on this admission with sepsis, status post liposuction 3 weeks ago in a hospital in [place], admitted now with severe sepsis, acute kidney injury. CAT scan consistent with an abscess. I discussed with surgical team again this morning regarding a need for surgical intervention, drainage and currently on Zyvox and meropenem. Surgery will reconsider conservative approach. Quinn Montes MD
[2017-04-27] MEDS: Linezolid 600 mg in D5W 300 ml 600 MG/300 ML BAG IVPB SCH ×2 (10:32→22:36)
--- NOTE | 2017-04-27 11:13 | CP.PCM.PN ---
Subjective - Date & Time of Evaluation Date of Evaluation: 04/27/17 Time of Evaluation: 11:09 - Subjective Subjective: Surgery Progress note. Dr. Mendoza Pt seen and examined at bedside. Pt still spiking fevers with Tmax 102.9F. Still c/o abdominal pannus pain, left worse than right. No N/V/D currently. No Headaches. Objective - Vital Signs/Intake and Output Vital Signs (last 24 hours): Temp Pulse Resp BP Pulse Ox 102.9 F H 127 H 18 145/88 93 L 04/27/17 06:20 04/27/17 06:00 04/27/17 06:00 04/27/17 06:00 04/27/17 06:00 Intake and Output: 04/27/17 04/27/17 06:59 18:59 Intake Total 236 Balance 236 - Medications Medications: Current Medications Acetaminophen (Tylenol 325mg Tab) 650 mg PO Q6H PRN PRN Reason: Fever >100.4 F Last Admin: 04/27/17 06:20 Dose: 650 mg Hydromorphone HCl (Dilaudid) 1 mg IVP Q4H PRN PRN Reason: Pain, severe (8-10) Last Admin: 04/27/17 08:24 Dose: 1 mg Meropenem 1g/NS 100mL IVPB (Meropenem 1g/Ns 100ml Ivpb) 1 gm in 100 mls @ 100 mls/hr IVPB Q8 OLIVIA PRN Reason: Protocol Stop: 05/03/17 14:01 Last Admin: 04/27/17 05:33 Dose: 100 mls/hr Linezolid (Zyvox 600mg/300ml D5w) 600 mg in 300 mls @ 200 mls/hr IVPB Q12 OLIVIA PRN Reason: Protocol Stop: 05/05/17 10:01 Last Admin: 04/27/17 10:32 Dose: 200 mls/hr Sodium Chloride (Sodium Chloride 0.9%) 1,000 mls @ 125 mls/hr IV .Q8H OLIVIA Last Admin: 04/27/17 10:32 Dose: 125 mls/hr Ondansetron HCl (Zofran Inj) 4 mg IVP Q6 PRN PRN Reason: Nausea/Vomiting Last Admin: 04/26/17 19:10 Dose: 4 mg Pantoprazole Sodium (Protonix Ec Tab) 40 mg PO 0600 OLIVIA Last Admin: 04/27/17 05:34 Dose: 40 mg - Labs Labs: 04/27/17 06:00 04/27/17 06:00 PT 10.7 Seconds (9.9-11.8) 04/25/17 01:30 INR 0.99 (0.93-1.08) 04/25/17 01:30 APTT 22.0 Seconds (23.7-30.8) L 04/25/17 01:30 - Head Exam Head Exam: ATRAUMATIC, NORMAL INSPECTION, NORMOCEPHALIC - Eye Exam Eye Exam: EOMI - ENT Exam ENT Exam: Mucous Membranes Moist - Neck Exam Neck Exam: Full ROM - Respiratory Exam Respiratory Exam: absent: Accessory Muscle Use - Cardiovascular Exam Cardiovascular Exam: RRR. absent: JVD - GI/Abdominal Exam Additional comments: abdominal pain, tender to palpation of pannus, left worse than right. Diffuse induration noted, no appreciatable collection palpable. Dependent edema noted in the pannus. - Extremities Exam Extremities Exam: absent: Calf Tenderness, Pedal Edema - Neurological Exam Neurological Exam: Alert, Awake - Skin Skin Exam: Dry, Intact, Warm Assessment and Plan - Assessment and Plan (Free Text) Assessment: 36yo F with liposuction done at outside facility. Comes in with presumed complication; infection, abdominal wall fluid collection. - Consider IR assessment for further drainage of fluid collection - continue IV Abx as per ID - Pain management Performed Bedside US guided abdominal pannus abscess aspiration. Discussed risks/benefits of the proposed procedure with patient. She verbalizes understanding and gives written consent for the procedure (on chart). Pannus was cleaned, preped and draped in the usual sterile fashion. Abdominal US performed at bedside. Noted fluid collection about 3cm deep at the left lateral lower abdominal pannus. Used about 5cc of 1% lidocaine for local anesthesia. Inserted 18G needle under direct visualization. Able to aspirate approximately 35cc of alondra purulent material. Wound culture sent for analysis. Placed sterile dressing. Patient tolerated procedure well. No immediate complications noted. Further recs as per Dr. Reji Laird PGY1 surgery pager: [phone]
[2017-04-27] MEDS ORDERED: Lidocaine 1% Inj (20ml) ONE (14:18)
--- NOTE | 2017-04-27 14:33 | CP.PCM.PN ---
<Shell Perea - Last Filed: 04/27/17 14:36> Subjective - Date & Time of Evaluation Date of Evaluation: 04/27/17 Time of Evaluation: 14:30 - Subjective Subjective: Patient has been seen examined at bedside. Patient still complains of fever. Is currently febrile @ 102.7. She also complains of chest congestion and minor SOB. Denies any CP, N/V/D or constipation. Objective - Vital Signs/Intake and Output Vital Signs (last 24 hours): Temp Pulse Resp BP Pulse Ox 103.6 F H 112 H 20 134/89 93 L 04/27/17 13:20 04/27/17 12:00 04/27/17 12:00 04/27/17 12:00 04/27/17 06:00 Intake and Output: 04/27/17 04/27/17 06:59 18:59 Intake Total 236 Balance 236 - Medications Medications: Current Medications Acetaminophen (Tylenol 325mg Tab) 650 mg PO Q6H PRN PRN Reason: Fever >100.4 F Last Admin: 04/27/17 13:16 Dose: 650 mg Hydromorphone HCl (Dilaudid) 1 mg IVP Q4H PRN PRN Reason: Pain, severe (8-10) Last Admin: 04/27/17 13:35 Dose: 1 mg Meropenem 1g/NS 100mL IVPB (Meropenem 1g/Ns 100ml Ivpb) 1 gm in 100 mls @ 100 mls/hr IVPB Q8 OLIVIA PRN Reason: Protocol Stop: 05/03/17 14:01 Last Admin: 04/27/17 05:33 Dose: 100 mls/hr Linezolid (Zyvox 600mg/300ml D5w) 600 mg in 300 mls @ 200 mls/hr IVPB Q12 OLIVIA PRN Reason: Protocol Stop: 05/05/17 10:01 Last Admin: 04/27/17 10:32 Dose: 200 mls/hr Sodium Chloride (Sodium Chloride 0.9%) 1,000 mls @ 125 mls/hr IV .Q8H OLIVIA Last Admin: 04/27/17 10:32 Dose: 125 mls/hr Ondansetron HCl (Zofran Inj) 4 mg IVP Q6 PRN PRN Reason: Nausea/Vomiting Last Admin: 04/26/17 19:10 Dose: 4 mg Pantoprazole Sodium (Protonix Ec Tab) 40 mg PO 0600 OLIVIA Last Admin: 04/27/17 05:34 Dose: 40 mg - Labs Labs: 04/27/17 06:00 04/27/17 06:00 PT 10.7 Seconds (9.9-11.8) 04/25/17 01:30 INR 0.99 (0.93-1.08) 04/25/17 01:30 APTT 22.0 Seconds (23.7-30.8) L 04/25/17 01:30 - Constitutional Appears: Toxic - Head Exam Head Exam: ATRAUMATIC, NORMOCEPHALIC - Eye Exam Eye Exam: EOMI, Normal appearance. absent: Scleral icterus - ENT Exam ENT Exam: Mucous Membranes Moist - Respiratory Exam Respiratory Exam: Clear to Ausculation Bilateral - Cardiovascular Exam Cardiovascular Exam: Tachycardia, REGULAR RHYTHM, +S1, +S2 - GI/Abdominal Exam GI & Abdominal Exam: Distended, Soft, Tenderness Additional comments: lower abdominal tenderness with erythema and distension. Wound is clean an dry. NO serous drainage. - Extremities Exam Extremities Exam: absent: Pedal Edema - Neurological Exam Neurological Exam: Alert, Awake, Oriented x3 - Psychiatric Exam Psychiatric exam: Normal Affect, Normal Mood - Skin Skin Exam: Diaphoretic, Intact, Normal Color, Warm Assessment and Plan - Assessment and Plan (Free Text) Assessment: This is a 36 year old female with past medical history of hypertension and recent laser liposuction who presents with abdominal pain and fever. Plan: 1. Sepsis CT abd/pelvis showed abdominal wall collection (seroma vs resolving hematoma vs abscess). -Surgery and ID evaluation were appreciated. -Continue with iv antibiotics. (Zyvox and Meropenem per ID). PRN Tylenol for fever. -Urine cultures show no growth, blood cultures show no growth after 48 hours. Wound cultures grew Streptococcus Pyogenes Grp A. 2. Leukocytosis -Likely secondary to above. Continue with antibiotics. -CXR ordered. 3. Hypertension Her norvasc was initially held due to low pressure on admission. Can resume if hypertension. Continue with protonix for GI prophylaxis and SCDs for DVT prophylaxis. Dilaudid 1 Q4 for pain control. Was paged by nurse due to patient spiking a fever. Nurse gave Tylenol. Patient also complained of chest congeston. Nurse took vitals and patient was had O2 saturation Patient seen, examined, and reviewed with Attending Shell Perea PGY-1 <Sixto Rosas - Last Filed: 04/27/17 17:03> Objective - Vital Signs/Intake and Output Vital Signs (last 24 hours): Temp Pulse Resp BP Pulse Ox 99.3 F 112 H 20 134/89 93 L 04/27/17 16:14 04/27/17 12:00 04/27/17 12:00 04/27/17 12:00 04/27/17 06:00 Intake and Output: 04/27/17 04/27/17 06:59 18:59 Intake Total 236 420 Balance 236 420 - Medications Medications: Current Medications Acetaminophen (Tylenol 325mg Tab) 650 mg PO Q6H PRN PRN Reason: Fever >100.4 F Last Admin: 04/27/17 13:16 Dose: 650 mg Hydromorphone HCl (Dilaudid) 1 mg IVP Q4H PRN PRN Reason: Pain, severe (8-10) Last Admin: 04/27/17 13:35 Dose: 1 mg Meropenem 1g/NS 100mL IVPB (Meropenem 1g/Ns 100ml Ivpb) 1 gm in 100 mls @ 100 mls/hr IVPB Q8 OLIVIA PRN Reason: Protocol Stop: 05/03/17 14:01 Last Admin: 04/27/17 16:09 Dose: 100 mls/hr Linezolid (Zyvox 600mg/300ml D5w) 600 mg in 300 mls @ 200 mls/hr IVPB Q12 OLIVIA PRN Reason: Protocol Stop: 05/05/17 10:01 Last Admin: 04/27/17 10:32 Dose: 200 mls/hr Ondansetron HCl (Zofran Inj) 4 mg IVP Q6 PRN PRN Reason: Nausea/Vomiting Last Admin: 04/26/17 19:10 Dose: 4 mg Pantoprazole Sodium (Protonix Ec Tab) 40 mg PO 0600 OLIVIA Last Admin: 04/27/17 05:34 Dose: 40 mg - Labs Labs: 04/27/17 06:00 04/27/17 06:00 PT 10.7 Seconds (9.9-11.8) 04/25/17 01:30 INR 0.99 (0.93-1.08) 04/25/17 01:30 APTT 22.0 Seconds (23.7-30.8) L 04/25/17 01:30 Attending/Attestation - Attestation I have personally seen and examined this patient.: Yes I have fully participated in the care of the patient.: Yes I have reviewed all pertinent clinical information, including history, physical exam and plan: Yes Notes (Text): 04/27/17 17:00 36 year old female with past medical history of hypertension and recent laser liposuction who presented with abdominal pain and fever. CT abd/pelvis showed abdominal wall collection (seroma vs resolving hematoma vs abscess). She is on iv antibiotics and surgery/ID is following. She continues to have persistent fever and leukocytosis. Case was discussed with surgery regarding drainage either by IR or surgery. This morning she also complains of mild dyspnea and congestion. Will repeat cxr today to r/o pneumonia vs congestion. Sixto Rosas MD Hospitalist.
--- NOTE | 2017-04-27 16:33 | RAD ---
HISTORY: hypoxic COMPARISON: Comparison chest dated 04/25/2017 FINDINGS: LUNGS: Poor inspiration with low lung volumes, crowded bronchovascular markings and mild bibasilar atelectasis. . Central pulmonary vasculature is slightly increased - perihilar opacities. . Rule out developing perihilar infiltrates. Possibility of developing pulmonary edema not excluded. Clinical correlation recommended. . PLEURA: No apparent pneumothorax. No obvious significant effusion. CARDIOVASCULAR: Heart size within range of normal. OSSEOUS STRUCTURES: No significant abnormalities. VISUALIZED UPPER ABDOMEN: Normal. OTHER FINDINGS: None. IMPRESSION: Poor inspiration with low lung volumes, crowded bronchovascular markings and mild bibasilar atelectasis. . Central pulmonary vasculature is slightly increased - perihilar opacities. . Rule out developing perihilar infiltrates. Possibility of developing pulmonary edema not excluded. Clinical correlation recommended. .
[2017-04-28] MEDS: HYDROmorphone 1 mg/ml ISec IVP PRN ×5 (02:57→21:03)
[2017-04-28] MEDS: Meropenem 1g/NS 100mL IVPB 1 GM/100 ML PIGGYBACK IVPB SCH ×3 (06:17→22:39)
[2017-04-28] MEDS: Pantoprazole 40 mg EC Tab PO SCH (06:17)
[2017-04-28 07:28] LABS: HEMATOCRIT 33.9 % (36.0-48.0); MEAN CELL VOLUME 84.1 fl (80.0-105.0); MEAN CORPUSCULAR HEMOGLOBIN 28.8 pg (25.0-35.0); MEAN CORPUSCULAR HGB CONC 34.2 g/dl (31.0-37.0); MEAN PLATELET VOLUME 10.7 fl (7.0-11.0); RED CELL DISTRIBUTION WIDTH 14.4 % (11.5-14.5); WHITE BLOOD COUNT 22.5 10^3/ul (4.5-11.0)
[2017-04-28 08:01] LABS: BLOOD UREA NITROGEN 9 mg/dL (7-21); CARBON DIOXIDE 25 mmol/L (21-33); CHLORIDE 103 mmol/L (98-107); GFR AFRICAN-AMERICAN > 60; GLUCOSE,RANDOM 105 mg/dL (70-110); POTASSIUM 3.3 mmol/L (3.6-5.0); SODIUM 141 mmol/L (132-148)
--- NOTE | 2017-04-28 08:20 | CP.PCM.PN ---
Subjective - Date & Time of Evaluation Date of Evaluation: 04/28/17 Time of Evaluation: 08:16 - Subjective Subjective: General Surgery Consult for Dr. Mendoza PT S&E at bedside. Patient had a 102.9F overnight. Patient was given ice packs, will follow throughout the day. Patient denies n/v. Patient admits to abdominal pain, with the most pain localized to the right lower quadrant. Abscess was drained from left lower quadrant yesterday. Wound culture pending Objective - Vital Signs/Intake and Output Vital Signs (last 24 hours): Temp Pulse Resp BP Pulse Ox 98 F 100 H 20 131/79 97 04/28/17 06:00 04/28/17 06:00 04/28/17 06:00 04/28/17 06:00 04/28/17 06:00 Intake and Output: 04/28/17 04/28/17 06:59 18:59 Intake Total 500 480 Balance 500 480 - Medications Medications: Current Medications Acetaminophen (Tylenol 325mg Tab) 650 mg PO Q6H PRN PRN Reason: Fever >100.4 F Last Admin: 04/28/17 02:56 Dose: 650 mg Hydromorphone HCl (Dilaudid) 1 mg IVP Q4H PRN PRN Reason: Pain, severe (8-10) Last Admin: 04/28/17 06:41 Dose: 1 mg Meropenem 1g/NS 100mL IVPB (Meropenem 1g/Ns 100ml Ivpb) 1 gm in 100 mls @ 100 mls/hr IVPB Q8 OLIVIA PRN Reason: Protocol Stop: 05/03/17 14:01 Last Admin: 04/28/17 06:17 Dose: 100 mls/hr Linezolid (Zyvox 600mg/300ml D5w) 600 mg in 300 mls @ 200 mls/hr IVPB Q12 OLIVIA PRN Reason: Protocol Stop: 05/05/17 10:01 Last Admin: 04/27/17 22:36 Dose: 200 mls/hr Ondansetron HCl (Zofran Inj) 4 mg IVP Q6 PRN PRN Reason: Nausea/Vomiting Last Admin: 04/28/17 06:44 Dose: 4 mg Pantoprazole Sodium (Protonix Ec Tab) 40 mg PO 0600 OLIVIA Last Admin: 04/28/17 06:17 Dose: 40 mg - Labs Labs: 04/28/17 07:00 04/28/17 07:00 PT 10.7 Seconds (9.9-11.8) 04/25/17 01:30 INR 0.99 (0.93-1.08) 04/25/17 01:30 APTT 22.0 Seconds (23.7-30.8) L 04/25/17 01:30 - Constitutional Appears: Other (diaphoretic, uncomfortable) - Eye Exam Eye Exam: EOMI, Normal appearance - ENT Exam ENT Exam: Mucous Membranes Moist - Neck Exam Neck Exam: Full ROM - Respiratory Exam Respiratory Exam: NORMAL BREATHING PATTERN. absent: Accessory Muscle Use, Respiratory Distress - Cardiovascular Exam Cardiovascular Exam: REGULAR RHYTHM, +S1, +S2. absent: Bradycardia, Tachycardia - GI/Abdominal Exam GI & Abdominal Exam: Soft, Tenderness (RLQ pain on palpation. no rebound, no peritoneal signs. localized to lower quadrants. LLQ pain) - Extremities Exam Extremities Exam: Full ROM, Normal Inspection. absent: Pedal Edema - Neurological Exam Neurological Exam: Alert, Awake, Oriented x3 - Psychiatric Exam Psychiatric exam: Normal Affect, Normal Mood - Skin Skin Exam: Dry, Normal Color, Warm Additional comments: drainage from liposuction entrance sites (mid upper abdomen, left and right lower quadrant) Assessment and Plan - Assessment and Plan (Free Text) Assessment: 36yo F w/ abdominal fluid collection s/p liposuction Plan: f/u IR consult for aspiration/drainage/or drain insertion c/w IR recommendations for abx c/w pain management f/u Vitals AM labs d/w Dr. Reji Betancourt, DO PGY1 surgery pager: [phone]
--- NOTE | 2017-04-28 08:59 | RAD ---
HISTORY: f/u congestion vs pna COMPARISON: 04/27/2017 FINDINGS: LUNGS: There are low lung volumes. There is apparent airspace disease in the right medial lower lobe. PLEURA: No significant pleural effusion identified, no pneumothorax apparent. CARDIOVASCULAR: Normal. OSSEOUS STRUCTURES: No significant abnormalities. VISUALIZED UPPER ABDOMEN: Normal. OTHER FINDINGS: None. IMPRESSION: Suspect right lower lobe pneumonia. Follow-up after medical management is recommended to ensure complete resolution.
[2017-04-28] MEDS: Linezolid 600 mg in D5W 300 ml 600 MG/300 ML BAG IVPB SCH ×2 (09:22→21:09)
--- NOTE | 2017-04-28 14:05 | CP.PCM.PN ---
Subjective - Date & Time of Evaluation Date of Evaluation: 04/28/17 Time of Evaluation: 11:10 - Subjective Subjective: Comfortable, not in distress but still with pain in the left side of the abdomen , now also with right sided abdominal pain. Had 101.6 F this purchasing specialist. Objective - Vital Signs/Intake and Output Vital Signs (last 24 hours): Temp Pulse Resp BP Pulse Ox 99.0 F 100 H 20 131/79 97 04/28/17 09:22 04/28/17 06:00 04/28/17 06:00 04/28/17 06:00 04/28/17 06:00 Intake and Output: 04/28/17 04/28/17 06:59 18:59 Intake Total 500 480 Balance 500 480 - Medications Medications: Current Medications Acetaminophen (Tylenol 325mg Tab) 650 mg PO Q6H PRN PRN Reason: Fever >100.4 F Last Admin: 04/28/17 09:22 Dose: 650 mg Hydromorphone HCl (Dilaudid) 1 mg IVP Q4H PRN PRN Reason: Pain, severe (8-10) Last Admin: 04/28/17 06:41 Dose: 1 mg Meropenem 1g/NS 100mL IVPB (Meropenem 1g/Ns 100ml Ivpb) 1 gm in 100 mls @ 100 mls/hr IVPB Q8 OLIVIA PRN Reason: Protocol Stop: 05/03/17 14:01 Last Admin: 04/28/17 06:17 Dose: 100 mls/hr Linezolid (Zyvox 600mg/300ml D5w) 600 mg in 300 mls @ 200 mls/hr IVPB Q12 OLIVIA PRN Reason: Protocol Stop: 05/05/17 10:01 Last Admin: 04/28/17 09:22 Dose: 200 mls/hr Potassium Chloride (Potassium Chloride 10 Meq/100 Ml) 10 meq in 100 mls @ 100 mls/hr IVPB Q2H OLIVIA Stop: 04/28/17 11:59 Ondansetron HCl (Zofran Inj) 4 mg IVP Q6 PRN PRN Reason: Nausea/Vomiting Last Admin: 04/28/17 06:44 Dose: 4 mg Pantoprazole Sodium (Protonix Ec Tab) 40 mg PO 0600 OLIVIA Last Admin: 04/28/17 06:17 Dose: 40 mg - Labs Labs: 04/28/17 07:00 04/28/17 07:00 PT 10.7 Seconds (9.9-11.8) 04/25/17 01:30 INR 0.99 (0.93-1.08) 04/25/17 01:30 APTT 22.0 Seconds (23.7-30.8) L 04/25/17 01:30 - Constitutional Appears: Non-toxic, No Acute Distress - Head Exam Head Exam: NORMAL INSPECTION - Neck Exam Neck Exam: absent: Meningismus - Respiratory Exam Respiratory Exam: Decreased Breath Sounds - Cardiovascular Exam Cardiovascular Exam: +S1, +S2 - GI/Abdominal Exam GI & Abdominal Exam: Soft, Tenderness (on LLQ and RLQ areas). absent: Distended , Guarding, Rigid, Rebound Assessment and Plan - Assessment and Plan (Free Text) Plan: Assessment Severe sepsis S/P acute renal failure due to abdominal wound skin and skin structure infection with abscess, after patient had liposuction 3 weeks ago S/P drainage of abscess yesterday obesity with BMI 37 HTN dyslipidemia S/P cholecystectomy Plan Continue Zyvox and Merrem and follow up wound cx from 04/27; 04/25 cx are growing group A Strep Follow up plan of Surgery for further drainage and assessment of the right lower quadrant area will continue to monitor clinically and trend fever curve
--- NOTE | 2017-04-28 18:49 | CP.PCM.PN ---
<MartinezsvenShellyjeana - Last Filed: 04/28/17 18:46> Subjective - Date & Time of Evaluation Date of Evaluation: 04/28/17 Time of Evaluation: 18:46 - Subjective Subjective: Patient has been seen and examined. She reports fever overnight which resolved with ice packs and tylenol. She reports abdominal pain and fullness on the right lower quadrant. She denies chills, states her chest congestion has improved. She does complain SOB on RA and diarrhea. Objective - Vital Signs/Intake and Output Vital Signs (last 24 hours): Temp Pulse Resp BP Pulse Ox 100 F H 98 H 20 137/85 96 04/28/17 18:18 04/28/17 18:18 04/28/17 18:18 04/28/17 18:18 04/28/17 18:18 Intake and Output: 04/28/17 04/28/17 06:59 18:59 Intake Total 1160 2340 Output Total 3 10 Balance 1157 2330 - Medications Medications: Current Medications Acetaminophen (Tylenol 325mg Tab) 650 mg PO Q6H PRN PRN Reason: Fever >100.4 F Last Admin: 04/28/17 17:46 Dose: 650 mg Hydromorphone HCl (Dilaudid) 1 mg IVP Q4H PRN PRN Reason: Pain, severe (8-10) Last Admin: 04/28/17 16:06 Dose: 1 mg Meropenem 1g/NS 100mL IVPB (Meropenem 1g/Ns 100ml Ivpb) 1 gm in 100 mls @ 100 mls/hr IVPB Q8 OLIVIA PRN Reason: Protocol Stop: 05/03/17 14:01 Last Admin: 04/28/17 13:52 Dose: 100 mls/hr Linezolid (Zyvox 600mg/300ml D5w) 600 mg in 300 mls @ 200 mls/hr IVPB Q12 OLIVIA PRN Reason: Protocol Stop: 05/05/17 10:01 Last Admin: 04/28/17 09:22 Dose: 200 mls/hr Ondansetron HCl (Zofran Inj) 4 mg IVP Q6 PRN PRN Reason: Nausea/Vomiting Last Admin: 04/28/17 13:59 Dose: 4 mg Pantoprazole Sodium (Protonix Ec Tab) 40 mg PO 0600 OLIVIA Last Admin: 04/28/17 06:17 Dose: 40 mg - Labs Labs: 04/28/17 07:00 04/28/17 07:00 PT 10.7 Seconds (9.9-11.8) 04/25/17 01:30 INR 0.99 (0.93-1.08) 04/25/17 01:30 APTT 22.0 Seconds (23.7-30.8) L 04/25/17 01:30 - Constitutional Appears: Toxic, No Acute Distress - Head Exam Head Exam: ATRAUMATIC, NORMAL INSPECTION, NORMOCEPHALIC - Eye Exam Eye Exam: EOMI - Respiratory Exam Additional comments: minimal rales in RLL - Cardiovascular Exam Cardiovascular Exam: Tachycardia, REGULAR RHYTHM, +S1, +S2 - GI/Abdominal Exam GI & Abdominal Exam: Soft, Tenderness, Normal Bowel Sounds - Extremities Exam Extremities Exam: absent: Pedal Edema - Neurological Exam Neurological Exam: Alert, Awake, Oriented x3 - Psychiatric Exam Psychiatric exam: Normal Mood - Skin Skin Exam: Diaphoretic, Intact, Normal Color, Warm Assessment and Plan - Assessment and Plan (Free Text) Assessment: This is a 36 year old female with past medical history of hypertension and recent laser liposuction who presents with abdominal pain and fever. Plan: 1. Sepsis CT abd/pelvis showed abdominal wall collection (seroma vs resolving hematoma vs abscess). -Surgery and ID evaluation were appreciated. -Continue with iv antibiotics. (Zyvox and Meropenem per ID). PRN Tylenol for fever. -Urine cultures show no growth, blood cultures show no growth after 48 hours. Wound cultures grew Streptococcus Pyogenes Grp A. -35cc of purulent fluid drained at bedside of LLQ. -IR consulted for RLQ abscess drainage 2. PNA (Community vs Healthcare Acquired) Continue with antibiotics. -CXR shows developing RLL PNA. Patient already on broad spectrum antibiotics. 3. Hypertension Her norvasc was initially held due to low pressure on admission. Can resume if hypertension. Continue with protonix for GI prophylaxis and SCDs for DVT prophylaxis. Dilaudid 1 Q4 for pain control. Patient seen, examined, and reviewed with Attending Shell Perea PGY-1 <Bradley STACY,Sonia - Last Filed: 04/29/17 13:56> Objective - Vital Signs/Intake and Output Vital Signs (last 24 hours): Temp Pulse Resp BP Pulse Ox 99.0 F 98 H 19 129/86 97 04/29/17 06:00 04/29/17 10:00 04/29/17 06:00 04/29/17 06:00 04/29/17 06:00 Intake and Output: 04/29/17 04/29/17 06:59 18:59 Intake Total 500 Balance 500 - Medications Medications: Current Medications Acetaminophen (Tylenol 325mg Tab) 650 mg PO Q6H PRN PRN Reason: Fever >100.4 F Last Admin: 04/29/17 01:31 Dose: 650 mg Meropenem 1g/NS 100mL IVPB (Meropenem 1g/Ns 100ml Ivpb) 1 gm in 100 mls @ 100 mls/hr IVPB Q8 OLIVIA PRN Reason: Protocol Stop: 05/03/17 14:01 Last Admin: 04/29/17 07:14 Dose: Not Given Linezolid (Zyvox 600mg/300ml D5w) 600 mg in 300 mls @ 200 mls/hr IVPB Q12 OLIVIA PRN Reason: Protocol Stop: 05/05/17 10:01 Last Admin: 04/29/17 10:07 Dose: 200 mls/hr Ondansetron HCl (Zofran Inj) 4 mg IVP Q6 PRN PRN Reason: Nausea/Vomiting Last Admin: 04/28/17 13:59 Dose: 4 mg Oxycodone/Acetaminophen (Percocet 5/325 Mg Tab) 1 tab PO Q6H PRN PRN Reason: Pain, severe (8-10) Stop: 05/02/17 09:32 Last Admin: 04/29/17 10:07 Dose: 1 tab Pantoprazole Sodium (Protonix Ec Tab) 40 mg PO 0600 OLIVIA Last Admin: 04/29/17 07:14 Dose: Not Given Valacyclovir HCl (Valtrex) 1,000 mg PO BID OLIVIA PRN Reason: Protocol Stop: 05/06/17 23:59 Last Admin: 04/29/17 10:07 Dose: 1,000 mg - Labs Labs: 04/29/17 04:30 04/29/17 04:30 PT 10.7 Seconds (9.9-11.8) 04/25/17 01:30 INR 0.99 (0.93-1.08) 04/25/17 01:30 APTT 22.0 Seconds (23.7-30.8) L 04/25/17 01:30 Attending/Attestation - Attestation I have personally seen and examined this patient.: Yes I have fully participated in the care of the patient.: Yes I have reviewed all pertinent clinical information, including history, physical exam and plan: Yes Notes (Text): 04/29/17 13:52 Patient was seen and examined with medical secretary teacher. Agreed with resident assessment and plan. 36 year old female with past medical history of hypertension and recent laser liposuction who presented with abdominal pain and fever. CT abd/pelvis showed abdominal wall collection (seroma vs resolving hematoma vs abscess). She is on iv antibiotics and sp id BY surgery. She continues to have persistent fever and leukocytosis.Chest Xrays showed new right middle lobe infilterate, HCAP Pneumonia.Wound cultures are grwoing Streptococu Pyogene.Patient was evaluated by IR, no drainable fluid at this time.We will continue IV antibiotics as per ID. Management plan was discussed in detail with patient Education was provided.
--- NOTE | 2017-04-28 19:34 | CP.PCM.PN ---
Subjective - Date & Time of Evaluation Date of Evaluation: 04/28/17 Time of Evaluation: 19:30 - Subjective Subjective: 36 yo with panniculitis/abscess post laser liposuction Reviewed CT scan. No drainable collection. Does have small abscesses that can be aspirated for micro if needed. Continue current management. Objective - Vital Signs/Intake and Output Vital Signs (last 24 hours): Temp Pulse Resp BP Pulse Ox 100 F H 98 H 20 137/85 96 04/28/17 18:18 04/28/17 18:18 04/28/17 18:18 04/28/17 18:18 04/28/17 18:18 Intake and Output: 04/28/17 04/29/17 18:59 06:59 Intake Total 2340 Output Total 10 Balance 2330 - Medications Medications: Current Medications Acetaminophen (Tylenol 325mg Tab) 650 mg PO Q6H PRN PRN Reason: Fever >100.4 F Last Admin: 04/28/17 17:46 Dose: 650 mg Hydromorphone HCl (Dilaudid) 1 mg IVP Q4H PRN PRN Reason: Pain, severe (8-10) Last Admin: 04/28/17 16:06 Dose: 1 mg Meropenem 1g/NS 100mL IVPB (Meropenem 1g/Ns 100ml Ivpb) 1 gm in 100 mls @ 100 mls/hr IVPB Q8 OLIVIA PRN Reason: Protocol Stop: 05/03/17 14:01 Last Admin: 04/28/17 13:52 Dose: 100 mls/hr Linezolid (Zyvox 600mg/300ml D5w) 600 mg in 300 mls @ 200 mls/hr IVPB Q12 OLIVIA PRN Reason: Protocol Stop: 05/05/17 10:01 Last Admin: 04/28/17 09:22 Dose: 200 mls/hr Ondansetron HCl (Zofran Inj) 4 mg IVP Q6 PRN PRN Reason: Nausea/Vomiting Last Admin: 04/28/17 13:59 Dose: 4 mg Pantoprazole Sodium (Protonix Ec Tab) 40 mg PO 0600 OLIVIA Last Admin: 04/28/17 06:17 Dose: 40 mg - Labs Labs: 04/28/17 07:00 04/28/17 07:00 PT 10.7 Seconds (9.9-11.8) 04/25/17 01:30 INR 0.99 (0.93-1.08) 04/25/17 01:30 APTT 22.0 Seconds (23.7-30.8) L 04/25/17 01:30
--- NOTE | 2017-04-28 20:16 | CARD ---
APPROVED REPORT EXAM: Two-dimensional and M-mode echocardiogram with Doppler and color Doppler. INDICATION LVFX 2D DIMENSIONS Left Atrium (2D)4.8 (1.6-4.0cm)IVSd0.9 (0.7-1.1cm) LVDd4.6 (3.9-5.9cm)PWd1.1 (0.7-1.1cm) LVDs3.2 (2.5-4.0cm)FS (%) 29.6 % LVEF (%)56.7 (>50%) M-Mode DIMENSIONS Aortic Root2.60 (2.2-3.7cm)Aortic Cusp Exc.1.60 (1.5-2.0cm) Aortic Valve AoV Peak Youlvyga792.0cm/Jose Peak GR.13mmHgLVOT Peak Nbomatul146.0cm/s LVOT VTI23.70cm Mitral Valve MV E Mooxycvm710.0cm/sMV A Ldnlvywy60.6cm/sE/A ratio1.9 TDI Lateral E' Peak V15.80cm/sMedial E' Peak V13.20cm/sE/Lateral E'7.5 E/Medial E'9.0 Pulmonary Valve PV Peak Lbeakgph326.0cm/sPV Peak Grad.6mmHg Tricuspid Valve TR Peak Jujzjwgl535rb/sRAP PNJZRWKA75jjLoLI Peak Gr.39mmHg [id number] LEFT VENTRICLE The left ventricle is normal size. There is normal left ventricular wall thickness. The left ventricular function is normal. The left ventricular ejection fraction is within the normal range. There is normal LV segmental wall motion. The left ventricular diastolic function is normal. RIGHT VENTRICLE The right ventricle is normal size. There is normal right ventricular wall thickness. The right ventricular systolic function is normal. ATRIA The left atrium is mildly dilated. The right atrium is borderline dilated. AORTIC VALVE The aortic valve is not well visualized. There is trace aortic regurgitation. MITRAL VALVE The mitral valve is normal in structure. Mitral regurgitation is mild. The mitral regurgitant jet is eccentrically directed. TRICUSPID VALVE There is mild tricuspid regurgitation. There is mild to moderate pulmonary hypertension. PULMONIC VALVE There is trace pulmonic valvular regurgitation. GREAT VESSELS The aortic root is normal in size. The IVC is normal in size and collapses >50% with inspiration. PERICARDIAL EFFUSION There is no pericardial effusion. <Conclusion> The left ventricle is normal size. There is normal left ventricular wall thickness. The left ventricular function is normal. The left ventricular ejection fraction is within the normal range. There is normal LV segmental wall motion. Mitral regurgitation is mild. There is mild tricuspid regurgitation. There is mild to moderate pulmonary hypertension.
[2017-04-29] MEDS: HYDROmorphone 1 mg/ml ISec IVP PRN (01:32)
[2017-04-29 05:38] LABS: HEMATOCRIT 28.9 % (36.0-48.0); MEAN CORPUSCULAR HEMOGLOBIN 28.5 pg (25.0-35.0); MEAN CORPUSCULAR HGB CONC 33.9 g/dl (31.0-37.0); MEAN PLATELET VOLUME 9.7 fl (7.0-11.0); RED CELL DISTRIBUTION WIDTH 14.5 % (11.5-14.5); WHITE BLOOD COUNT 19.3 10^3/ul (4.5-11.0)
[2017-04-29 06:57] LABS: BLOOD UREA NITROGEN 10 mg/dL (7-21); CALCIUM 8.3 mg/dL (8.4-10.5); CARBON DIOXIDE 28 mmol/L (21-33); CHLORIDE 100 mmol/L (95-110); GFR AFRICAN-AMERICAN > 60; GLUCOSE,RANDOM 96 mg/dL (70-110); POTASSIUM 3.6 mmol/L (3.6-5.0); SODIUM 137 mmol/L (132-148)
[2017-04-29] MEDS: Pantoprazole 40 mg EC Tab PO SCH (07:14)
[2017-04-29] MEDS: Meropenem 1g/NS 100mL IVPB 1 GM/100 ML PIGGYBACK IVPB SCH ×3 (07:14→21:50)
--- NOTE | 2017-04-29 08:24 | CP.PCM.PN ---
Subjective - Date & Time of Evaluation Date of Evaluation: 04/29/17 Time of Evaluation: 08:19 - Subjective Subjective: General Surgery Progress note for Dr. Mendoza PT S&E at bedside. Patient states she's in a lot of pain. She states her pain is worse on the right side. Patient denies nausea. NAEON. Objective - Vital Signs/Intake and Output Vital Signs (last 24 hours): Temp Pulse Resp BP Pulse Ox 99.0 F 91 H 19 129/86 97 04/29/17 06:00 04/29/17 06:00 04/29/17 06:00 04/29/17 06:00 04/29/17 06:00 Intake and Output: 04/29/17 04/29/17 06:59 18:59 Intake Total 500 Balance 500 - Medications Medications: Current Medications Acetaminophen (Tylenol 325mg Tab) 650 mg PO Q6H PRN PRN Reason: Fever >100.4 F Last Admin: 04/29/17 01:31 Dose: 650 mg Meropenem 1g/NS 100mL IVPB (Meropenem 1g/Ns 100ml Ivpb) 1 gm in 100 mls @ 100 mls/hr IVPB Q8 OLIVIA PRN Reason: Protocol Stop: 05/03/17 14:01 Last Admin: 04/29/17 07:14 Dose: Not Given Linezolid (Zyvox 600mg/300ml D5w) 600 mg in 300 mls @ 200 mls/hr IVPB Q12 OLIVIA PRN Reason: Protocol Stop: 05/05/17 10:01 Last Admin: 04/28/17 21:09 Dose: 200 mls/hr Ondansetron HCl (Zofran Inj) 4 mg IVP Q6 PRN PRN Reason: Nausea/Vomiting Last Admin: 04/28/17 13:59 Dose: 4 mg Pantoprazole Sodium (Protonix Ec Tab) 40 mg PO 0600 OLIVIA Last Admin: 04/29/17 07:14 Dose: Not Given - Labs Labs: 04/29/17 04:30 04/29/17 04:30 PT 10.7 Seconds (9.9-11.8) 04/25/17 01:30 INR 0.99 (0.93-1.08) 04/25/17 01:30 APTT 22.0 Seconds (23.7-30.8) L 04/25/17 01:30 Assessment and Plan - Assessment and Plan (Free Text) Assessment: 36yo F w/ abdominal fluid collection s/p laser liposuction Plan: c/w ID recommendations for abx c/w pain management f/u Vitals AM labs Needle aspiration at bedside planned for today d/w Dr. Reji Betancourt, DO PGY1 surgery pager: [phone]
[2017-04-29] MEDS: Linezolid 600 mg in D5W 300 ml 600 MG/300 ML BAG IVPB SCH ×2 (10:07→21:50)
[2017-04-29] MEDS: Oxycodone/Acetaminophen 5/325 mg Tab PO PRN ×2 (10:07→15:52)
--- NOTE | 2017-04-29 11:42 | CP.PCM.PN ---
Subjective - Date & Time of Evaluation Date of Evaluation: 04/29/17 Time of Evaluation: 10:15 - Subjective Subjective: Still having pain in the abdomen as well as low grade fevers. No diarrhea, no nausea. Objective - Vital Signs/Intake and Output Vital Signs (last 24 hours): Temp Pulse Resp BP Pulse Ox 99.0 F 91 H 19 129/86 97 04/29/17 06:00 04/29/17 06:00 04/29/17 06:00 04/29/17 06:00 04/29/17 06:00 Intake and Output: 04/29/17 04/29/17 06:59 18:59 Intake Total 500 Balance 500 - Medications Medications: Current Medications Acetaminophen (Tylenol 325mg Tab) 650 mg PO Q6H PRN PRN Reason: Fever >100.4 F Last Admin: 04/29/17 01:31 Dose: 650 mg Meropenem 1g/NS 100mL IVPB (Meropenem 1g/Ns 100ml Ivpb) 1 gm in 100 mls @ 100 mls/hr IVPB Q8 OLIVIA PRN Reason: Protocol Stop: 05/03/17 14:01 Last Admin: 04/29/17 07:14 Dose: Not Given Linezolid (Zyvox 600mg/300ml D5w) 600 mg in 300 mls @ 200 mls/hr IVPB Q12 OLIVIA PRN Reason: Protocol Stop: 05/05/17 10:01 Last Admin: 04/28/17 21:09 Dose: 200 mls/hr Ondansetron HCl (Zofran Inj) 4 mg IVP Q6 PRN PRN Reason: Nausea/Vomiting Last Admin: 04/28/17 13:59 Dose: 4 mg Pantoprazole Sodium (Protonix Ec Tab) 40 mg PO 0600 OLIVIA Last Admin: 04/29/17 07:14 Dose: Not Given - Labs Labs: 04/29/17 04:30 04/29/17 04:30 PT 10.7 Seconds (9.9-11.8) 04/25/17 01:30 INR 0.99 (0.93-1.08) 04/25/17 01:30 APTT 22.0 Seconds (23.7-30.8) L 04/25/17 01:30 - Constitutional Appears: Non-toxic, No Acute Distress - Head Exam Head Exam: NORMAL INSPECTION - ENT Exam ENT Exam: Mucous Membranes Moist - Neck Exam Neck Exam: absent: Meningismus - Respiratory Exam Respiratory Exam: Decreased Breath Sounds - Cardiovascular Exam Cardiovascular Exam: +S1, +S2 - GI/Abdominal Exam GI & Abdominal Exam: Soft, Tenderness (on the lower quadrants). absent: Distended, Guarding, Rigid, Rebound Assessment and Plan - Assessment and Plan (Free Text) Plan: Assessment Severe sepsis S/P acute renal failure due to abdominal wound skin and skin structure infection with abscess, after patient had liposuction 3 weeks ago S/P drainage of abscess yesterday; initial wound cx from 04/25 growing Group A Strep obesity with BMI 37 HTN dyslipidemia S/P cholecystectomy Plan Continue Zyvox and Merrem and follow up final results of wound cx from 04/27; cx are growing group A Strep Follow up plan of Surgery for further drainage and assessment of the right lower quadrant area will continue to monitor clinically and trend fever curve discussed with Dr. Huerta
[2017-04-29] MEDS ORDERED: Lidocaine 1% Inj (20ml) IJ STA (15:31)
--- NOTE | 2017-04-29 17:13 | PCM.PROC ---
Procedure: Blank - Time Time Performed: 16:00 - Time Out Time Out: Side verified, Site verified - Consent obtained: Consent obtained: Written - Performed by: Performed by:: Attending physician (Resident Amanda Betancourt, PGY1) - Indications Indications(s):: abscess, fluid collection on CT and Ultrasound - Contraindications: Contraindications:: None - Anesthetic Technique Anesthetic Technique: Local - Topical: Local/Regional Anesthetic:: Lidocaine 1% (10cc) - Patient Position Patient Position:: Supine - Location Location: Right, Abdomen (LLQ (two sites)) - Needle Size Needle Size:: 24G - Result Result: Other (5cc aspirated. Seropurulent material) - Post-Procedure Post-procedure:: Hemostasis achieved, Dressing applied, Vital signs stable - Specimens/Tests Ordered Specimens/Tests Ordered: none. patient is on antibiotics. wound culture already aspirated previously - Complications Complications:: Bleeding (minimal. 2cc) - Patient Tolerated Procedure Patient Tolerated Procedure:: Well
--- NOTE | 2017-04-29 18:49 | CP.PCM.PN ---
<Shell Perea - Last Filed: 04/29/17 18:58> Subjective - Date & Time of Evaluation Date of Evaluation: 04/29/17 Time of Evaluation: 18:46 - Subjective Subjective: Patient has been seen and examined. She reports low grade fevers overnight, lower quadrant abdominal pain and fullness, and cold sore. Patient denies having any headache, nausea, vomiting, diarrhea, or constipation. Denies and urinary symptoms. Objective - Vital Signs/Intake and Output Vital Signs (last 24 hours): Temp Pulse Resp BP Pulse Ox 100.6 F H 98 H 16 140/80 97 04/29/17 18:00 04/29/17 18:00 04/29/17 18:00 04/29/17 18:00 04/29/17 06:00 Intake and Output: 04/29/17 04/29/17 06:59 18:59 Intake Total 500 Balance 500 - Medications Medications: Current Medications Acetaminophen (Tylenol 325mg Tab) 650 mg PO Q6H PRN PRN Reason: Fever >100.4 F Last Admin: 04/29/17 14:24 Dose: 650 mg Meropenem 1g/NS 100mL IVPB (Meropenem 1g/Ns 100ml Ivpb) 1 gm in 100 mls @ 100 mls/hr IVPB Q8 OLIVIA PRN Reason: Protocol Stop: 05/03/17 14:01 Last Admin: 04/29/17 14:01 Dose: 100 mls/hr Linezolid (Zyvox 600mg/300ml D5w) 600 mg in 300 mls @ 200 mls/hr IVPB Q12 OLIVIA PRN Reason: Protocol Stop: 05/05/17 10:01 Last Admin: 04/29/17 10:07 Dose: 200 mls/hr Ondansetron HCl (Zofran Inj) 4 mg IVP Q6 PRN PRN Reason: Nausea/Vomiting Last Admin: 04/28/17 13:59 Dose: 4 mg Oxycodone/Acetaminophen (Percocet 5/325 Mg Tab) 1 tab PO Q6H PRN PRN Reason: Pain, severe (8-10) Stop: 05/02/17 09:32 Last Admin: 04/29/17 15:52 Dose: 1 tab Pantoprazole Sodium (Protonix Ec Tab) 40 mg PO 0600 OLIVIA Last Admin: 04/29/17 07:14 Dose: Not Given Valacyclovir HCl (Valtrex) 1,000 mg PO BID OLIVIA PRN Reason: Protocol Stop: 05/06/17 23:59 Last Admin: 04/29/17 17:26 Dose: 1,000 mg - Labs Labs: 04/29/17 04:30 04/29/17 04:30 PT 10.7 Seconds (9.9-11.8) 04/25/17 01:30 INR 0.99 (0.93-1.08) 04/25/17 01:30 APTT 22.0 Seconds (23.7-30.8) L 04/25/17 01:30 - Constitutional Appears: Toxic, In Acute Distress - Head Exam Head Exam: ATRAUMATIC Additional comments: vesicular rash on lip - Eye Exam Eye Exam: EOMI, Normal appearance - ENT Exam ENT Exam: Mucous Membranes Moist - Respiratory Exam Respiratory Exam: Clear to Ausculation Bilateral. absent: Rales, Rhonchi, Wheezes - Cardiovascular Exam Cardiovascular Exam: RRR, +S1, +S2 - GI/Abdominal Exam GI & Abdominal Exam: Soft Additional comments: lower quadrant tenderness - Extremities Exam Extremities Exam: absent: Pedal Edema - Neurological Exam Neurological Exam: Alert, Awake, Oriented x3 - Skin Skin Exam: Diaphoretic Assessment and Plan - Assessment and Plan (Free Text) Assessment: This is a 36 year old female with past medical history of hypertension and recent laser liposuction who presents with abdominal pain and fever. Plan: Sepsis CT abd/pelvis showed abdominal wall collection (seroma vs resolving hematoma vs abscess). -Surgery and ID evaluation were appreciated. -Surgery drained 5cc of seropurulent fluid today. -Continue with iv antibiotics. (Zyvox and Meropenem per ID). PRN Tylenol for fever. -Urine and Blood cultures are negative. Wound (04/25) cultures grew Streptococcus Pyogenes Grp A. 04/27 wound cultures grew nothing. -35cc of purulent fluid drained at bedside of LLQ. PNA (Community vs Healthcare Acquired) Continue with antibiotics. -CXR shows developing RLL PNA. Patient already on broad spectrum antibiotics. Oral herpes -Valtrex 1000 BID for 7 days. Hypertension Her norvasc was initially held due to low pressure on admission. Can resume if hypertension. Continue with protonix for GI prophylaxis and SCDs for DVT prophylaxis. Percocet 5-325 for pain control. Patient seen, examined, and reviewed with Attending Shell Perea PGY-1 <Bradley STACY,Sonia - Last Filed: 05/01/17 15:06> Objective - Vital Signs/Intake and Output Vital Signs (last 24 hours): Temp Pulse Resp BP Pulse Ox 98.7 F 77 22 150/90 95 05/01/17 06:00 05/01/17 06:00 05/01/17 06:00 05/01/17 06:00 05/01/17 06:00 Intake and Output: 05/01/17 05/01/17 06:59 18:59 Intake Total 1480 Balance 1480 - Medications Medications: Current Medications Acetaminophen (Tylenol 325mg Tab) 650 mg PO Q6H PRN PRN Reason: Fever >100.4 F Last Admin: 04/30/17 17:12 Dose: 650 mg Linezolid (Zyvox 600mg/300ml D5w) 600 mg in 300 mls @ 200 mls/hr IVPB Q12 OLIVIA PRN Reason: Protocol Stop: 05/05/17 10:01 Last Admin: 05/01/17 10:46 Dose: 200 mls/hr Ondansetron HCl (Zofran Inj) 4 mg IVP Q6 PRN PRN Reason: Nausea/Vomiting Last Admin: 04/30/17 04:23 Dose: 4 mg Pantoprazole Sodium (Protonix Ec Tab) 40 mg PO 0600 OLIVIA Last Admin: 05/01/17 05:49 Dose: 40 mg Valacyclovir HCl (Valtrex) 1,000 mg PO BID OLIVIA PRN Reason: Protocol Stop: 05/06/17 23:59 Last Admin: 05/01/17 09:01 Dose: 1,000 mg - Labs Labs: 05/01/17 06:12 05/01/17 06:12 PT 10.7 Seconds (9.9-11.8) 04/25/17 01:30 INR 0.99 (0.93-1.08) 04/25/17 01:30 APTT 22.0 Seconds (23.7-30.8) L 04/25/17 01:30 Attending/Attestation - Attestation I have personally seen and examined this patient.: Yes I have fully participated in the care of the patient.: Yes I have reviewed all pertinent clinical information, including history, physical exam and plan: Yes Notes (Text): 05/01/17 15:05 Patient was seen and examined with medical facilities section director. Agreed with resident assessment and plan. 36 year old female with past medical history of hypertension and recent laser liposuction who presented with abdominal pain and fever. CT abd/pelvis showed abdominal wall collection (seroma vs resolving hematoma vs abscess). Chest Xrays showed new right middle lobe infilterate, HCAP Pneumonia.Wound cultures are grwoing Streptococu Pyogene.Patient was evaluated by IR, no drainable fluid at this time.We will continue IV antibiotics as per ID. Management plan was discussed in detail with patient Education was provided.
[2017-04-30] MEDS: Meropenem 1g/NS 100mL IVPB 1 GM/100 ML PIGGYBACK IVPB SCH ×2 (06:22→21:40)
[2017-04-30] MEDS: Pantoprazole 40 mg EC Tab PO SCH (06:27)
[2017-04-30 08:06] LABS: BASO # 0.02 K/mm3 (0.0-2.0); BASO % 0.1 % (0.0-3.0); EOS # 0.1 (0.0-0.7); EOS % 0.5 % (1.5-5.0); GRAN # 12.43 (1.4-6.5); GRAN % 83.3 % (50.0-68.0); HEMATOCRIT 30.9 % (36.0-48.0); LYMPH # 1.4 (1.2-3.4); LYMPH % 9.4 % (22.0-35.0); MEAN CELL VOLUME 83.1 fl (80.0-105.0); MEAN CORPUSCULAR HEMOGLOBIN 28.5 pg (25.0-35.0); MEAN CORPUSCULAR HGB CONC 34.3 g/dl (31.0-37.0); MEAN PLATELET VOLUME 9.1 fl (7.0-11.0); MONO % 6.7 % (1.0-6.0); RED CELL DISTRIBUTION WIDTH 14.3 % (11.5-14.5); WHITE BLOOD COUNT 14.9 10^3/ul (4.5-11.0)
[2017-04-30 08:25] LABS: ALB/GLOB RATIO 0.8 (1.1-1.8); ALKALINE PHOSPHATASE 154 U/L (38-126); ALT/SGPT 65 U/L (7-56); AST/SGOT 30 U/L (14-36); BILIRUBIN,TOTAL 0.5 mg/dL (0.2-1.3); BLOOD UREA NITROGEN 10 mg/dL (7-21); CALCIUM 8.5 mg/dL (8.4-10.5); CARBON DIOXIDE 31 mmol/L (21-33); CHLORIDE 100 mmol/L (98-107); GFR AFRICAN-AMERICAN > 60; GLUCOSE,RANDOM 94 mg/dL (70-110); POTASSIUM 3.4 mmol/L (3.6-5.0); SODIUM 140 mmol/L (132-148); TOTAL PROTEIN 6.6 g/dL (5.8-8.3)
[2017-04-30] MEDS: Linezolid 600 mg in D5W 300 ml 600 MG/300 ML BAG IVPB SCH ×2 (09:41→22:48)
--- NOTE | 2017-04-30 13:16 | CP.PCM.PN ---
Subjective - Date & Time of Evaluation Date of Evaluation: 04/30/17 Time of Evaluation: 13:13 - Subjective Subjective: General Surgery Progress note for Dr. Mendoza PT S&E at bedside. QUINTON. Patient states she's been doing well. per Medicine team, patient was hallucinating overnight. Psychiatry on board. Patient states she's feeling better, pain is less than before. Patient is tolerating diet Objective - Vital Signs/Intake and Output Vital Signs (last 24 hours): Temp Pulse Resp BP Pulse Ox 99.2 F 90 18 153/95 H 95 04/30/17 06:00 04/30/17 06:00 04/30/17 06:00 04/30/17 06:00 04/30/17 06:00 - Medications Medications: Current Medications Acetaminophen (Tylenol 325mg Tab) 650 mg PO Q6H PRN PRN Reason: Fever >100.4 F Last Admin: 04/30/17 05:41 Dose: 650 mg Linezolid (Zyvox 600mg/300ml D5w) 600 mg in 300 mls @ 200 mls/hr IVPB Q12 OLIVIA PRN Reason: Protocol Stop: 05/05/17 10:01 Last Admin: 04/30/17 09:41 Dose: 200 mls/hr Ondansetron HCl (Zofran Inj) 4 mg IVP Q6 PRN PRN Reason: Nausea/Vomiting Last Admin: 04/30/17 04:23 Dose: 4 mg Pantoprazole Sodium (Protonix Ec Tab) 40 mg PO 0600 OLIVIA Last Admin: 04/30/17 06:27 Dose: 40 mg Valacyclovir HCl (Valtrex) 1,000 mg PO BID OLIVIA PRN Reason: Protocol Stop: 05/06/17 23:59 Last Admin: 04/30/17 09:42 Dose: 1,000 mg - Labs Labs: 04/30/17 07:45 04/30/17 07:45 PT 10.7 Seconds (9.9-11.8) 04/25/17 01:30 INR 0.99 (0.93-1.08) 04/25/17 01:30 APTT 22.0 Seconds (23.7-30.8) L 04/25/17 01:30 - Constitutional Appears: Non-toxic - Head Exam Head Exam: NORMAL INSPECTION - Eye Exam Eye Exam: EOMI, Normal appearance - ENT Exam ENT Exam: Mucous Membranes Moist - Neck Exam Neck Exam: Full ROM - Respiratory Exam Respiratory Exam: Clear to Ausculation Bilateral. absent: Accessory Muscle Use , Respiratory Distress - Cardiovascular Exam Cardiovascular Exam: REGULAR RHYTHM. absent: Bradycardia, Tachycardia - GI/Abdominal Exam GI & Abdominal Exam: Soft, Normal Bowel Sounds. absent: Tenderness - Rectal Exam Rectal Exam: NORMAL INSPECTION - Exam Exam: NORMAL INSPECTION - Extremities Exam Extremities Exam: Full ROM, Normal Capillary Refill. absent: Pedal Edema - Neurological Exam Neurological Exam: Alert, Awake, Oriented x3 - Psychiatric Exam Psychiatric exam: Normal Affect, Normal Mood - Skin Skin Exam: Dry, Intact, Warm Additional comments: areas of aspiration, dressing removed lower abdomen still has areas of induration, but is softer than yesterday's physical exam Assessment and Plan - Assessment and Plan (Free Text) Assessment: 36yo F w/ abdominal fluid collection s/p laser liposuction Plan: c/w ID recommendations for abx c/w pain management f/u Vitals AM labs f/u psychiatry recommendations c/w medical management per medicine team d/w Dr. Reji Betancourt, DO PGY1 surgery pager: [phone]
--- NOTE | 2017-04-30 14:03 | CP.PCM.PN ---
<Shell Perea - Last Filed: 04/30/17 13:59> Subjective - Date & Time of Evaluation Date of Evaluation: 04/30/17 Time of Evaluation: 13:59 - Subjective Subjective: Patient has been seen and examined. She reports low grade fevers overnight, lower quadrant abdominal pain and fullness (slightly improved), headache and cold sore. Patient denies nausea, vomiting, diarrhea, or constipation. Denies and urinary symptoms. Per night team, patient was hallucinating overnight post Percocet. Objective - Vital Signs/Intake and Output Vital Signs (last 24 hours): Temp Pulse Resp BP Pulse Ox 99.2 F 90 18 153/95 H 95 04/30/17 06:00 04/30/17 06:00 04/30/17 06:00 04/30/17 06:00 04/30/17 06:00 - Medications Medications: Current Medications Acetaminophen (Tylenol 325mg Tab) 650 mg PO Q6H PRN PRN Reason: Fever >100.4 F Last Admin: 04/30/17 05:41 Dose: 650 mg Linezolid (Zyvox 600mg/300ml D5w) 600 mg in 300 mls @ 200 mls/hr IVPB Q12 OLIVIA PRN Reason: Protocol Stop: 05/05/17 10:01 Last Admin: 04/30/17 09:41 Dose: 200 mls/hr Ondansetron HCl (Zofran Inj) 4 mg IVP Q6 PRN PRN Reason: Nausea/Vomiting Last Admin: 04/30/17 04:23 Dose: 4 mg Pantoprazole Sodium (Protonix Ec Tab) 40 mg PO 0600 [facility] Last Admin: 04/30/17 06:27 Dose: 40 mg Valacyclovir HCl (Valtrex) 1,000 mg PO BID OLIVIA PRN Reason: Protocol Stop: 05/06/17 23:59 Last Admin: 04/30/17 09:42 Dose: 1,000 mg - Labs Labs: 04/30/17 07:45 04/30/17 07:45 PT 10.7 Seconds (9.9-11.8) 04/25/17 01:30 INR 0.99 (0.93-1.08) 04/25/17 01:30 APTT 22.0 Seconds (23.7-30.8) L 04/25/17 01:30 - Constitutional Appears: No Acute Distress - Head Exam Head Exam: ATRAUMATIC, NORMAL INSPECTION, NORMOCEPHALIC Additional comments: Vesicular rash on lip - Respiratory Exam Respiratory Exam: Clear to Ausculation Bilateral. absent: Rales, Rhonchi, Stridor - Cardiovascular Exam Cardiovascular Exam: RRR, +S1, +S2 - GI/Abdominal Exam GI & Abdominal Exam: Soft Additional comments: Lower quadrant tenderness (improved) - Extremities Exam Extremities Exam: Normal Capillary Refill. absent: Pedal Edema - Neurological Exam Neurological Exam: Alert, Awake, Oriented x3 - Psychiatric Exam Psychiatric exam: Normal Affect, Normal Mood Assessment and Plan - Assessment and Plan (Free Text) Assessment: This is a 36 year old female with past medical history of hypertension and recent laser liposuction who presents with abdominal pain and fever. Plan: Sepsis CT abd/pelvis showed abdominal wall collection (seroma vs resolving hematoma vs abscess). -Surgery and ID evaluation were appreciated. -Continue with iv antibiotics. (Zyvox and Meropenem per ID). PRN Tylenol for fever. -Urine and Blood cultures are negative. Wound (04/25) cultures grew Streptococcus Pyogenes Grp A. 04/27 wound cultures grew nothing. -35cc of purulent fluid drained at bedside of LLQ. 5ccs on RLQ PNA (Community vs Healthcare Acquired) Continue with antibiotics. -CXR shows developing RLL PNA. Patient already on broad spectrum antibiotics. Oral herpes -Valtrex 1000 BID for 7 days. Hypertension Her norvasc was initially held due to low pressure on admission. Can resume if hypertension. Blood pressures are variable at different points of the day. Consider starting home anti-hypertensives tomorrow if they continue to run high. Possible pain component. Continue with protonix for GI prophylaxis and SCDs for DVT prophylaxis. Percocet 5-325 for pain control. Patient seen, examined, and reviewed with Attending Shell Perea PGY-1 <Bradley STACY,Sonia - Last Filed: 05/01/17 15:09> Objective - Vital Signs/Intake and Output Vital Signs (last 24 hours): Temp Pulse Resp BP Pulse Ox 98.7 F 77 22 150/90 95 05/01/17 06:00 05/01/17 06:00 05/01/17 06:00 05/01/17 06:00 05/01/17 06:00 Intake and Output: 05/01/17 05/01/17 06:59 18:59 Intake Total 1480 Balance 1480 - Medications Medications: Current Medications Acetaminophen (Tylenol 325mg Tab) 650 mg PO Q6H PRN PRN Reason: Fever >100.4 F Last Admin: 04/30/17 17:12 Dose: 650 mg Linezolid (Zyvox 600mg/300ml D5w) 600 mg in 300 mls @ 200 mls/hr IVPB Q12 OLIVIA PRN Reason: Protocol Stop: 05/05/17 10:01 Last Admin: 05/01/17 10:46 Dose: 200 mls/hr Ondansetron HCl (Zofran Inj) 4 mg IVP Q6 PRN PRN Reason: Nausea/Vomiting Last Admin: 04/30/17 04:23 Dose: 4 mg Pantoprazole Sodium (Protonix Ec Tab) 40 mg PO 0600 OLIVIA Last Admin: 05/01/17 05:49 Dose: 40 mg Valacyclovir HCl (Valtrex) 1,000 mg PO BID OLIVIA PRN Reason: Protocol Stop: 05/06/17 23:59 Last Admin: 05/01/17 09:01 Dose: 1,000 mg - Labs Labs: 05/01/17 06:12 05/01/17 06:12 PT 10.7 Seconds (9.9-11.8) 04/25/17 01:30 INR 0.99 (0.93-1.08) 04/25/17 01:30 APTT 22.0 Seconds (23.7-30.8) L 04/25/17 01:30 Attending/Attestation - Attestation I have personally seen and examined this patient.: Yes I have fully participated in the care of the patient.: Yes I have reviewed all pertinent clinical information, including history, physical exam and plan: Yes Notes (Text): 05/01/17 15:07 Patient was seen and examined with medical numerical control operator. Agreed with resident assessment and plan. Patient is feeling better, fever has come down,WBC is coming down.Blood cultures are negative for any growth.Aspiration of fluid from abdominal wall was done yesterday, patient is afebrile today.She is on room air and is ambulatory. Avoid Narcotic due to hallucination. Management plan was discussed in detail with patient Education was provided.
--- NOTE | 2017-04-30 14:48 | CP.PCM.PN ---
Subjective - Date & Time of Evaluation Date of Evaluation: 04/30/17 Time of Evaluation: 11:10 - Subjective Subjective: Comfortable, still with abdominal pain, no fevers overnight. Objective - Vital Signs/Intake and Output Vital Signs (last 24 hours): Temp Pulse Resp BP Pulse Ox 99.2 F 90 18 153/95 H 95 04/30/17 06:00 04/30/17 06:00 04/30/17 06:00 04/30/17 06:00 04/30/17 06:00 - Medications Medications: Current Medications Acetaminophen (Tylenol 325mg Tab) 650 mg PO Q6H PRN PRN Reason: Fever >100.4 F Last Admin: 04/30/17 05:41 Dose: 650 mg Meropenem 1g/NS 100mL IVPB (Meropenem 1g/Ns 100ml Ivpb) 1 gm in 100 mls @ 100 mls/hr IVPB Q8 OLIVIA PRN Reason: Protocol Stop: 05/03/17 14:01 Last Admin: 04/30/17 06:22 Dose: 100 mls/hr Linezolid (Zyvox 600mg/300ml D5w) 600 mg in 300 mls @ 200 mls/hr IVPB Q12 OLIVIA PRN Reason: Protocol Stop: 05/05/17 10:01 Last Admin: 04/30/17 09:41 Dose: 200 mls/hr Ondansetron HCl (Zofran Inj) 4 mg IVP Q6 PRN PRN Reason: Nausea/Vomiting Last Admin: 04/30/17 04:23 Dose: 4 mg Oxycodone/Acetaminophen (Percocet 5/325 Mg Tab) 1 tab PO Q6H PRN PRN Reason: Pain, severe (8-10) Stop: 05/02/17 09:32 Last Admin: 04/29/17 15:52 Dose: 1 tab Pantoprazole Sodium (Protonix Ec Tab) 40 mg PO 0600 OLIVIA Last Admin: 04/30/17 06:27 Dose: 40 mg Valacyclovir HCl (Valtrex) 1,000 mg PO BID OLIVIA PRN Reason: Protocol Stop: 05/06/17 23:59 Last Admin: 04/30/17 09:42 Dose: 1,000 mg - Labs Labs: 04/30/17 07:45 04/30/17 07:45 PT 10.7 Seconds (9.9-11.8) 04/25/17 01:30 INR 0.99 (0.93-1.08) 04/25/17 01:30 APTT 22.0 Seconds (23.7-30.8) L 04/25/17 01:30 - Constitutional Appears: Non-toxic, No Acute Distress - Head Exam Head Exam: NORMAL INSPECTION - ENT Exam ENT Exam: Mucous Membranes Moist - Neck Exam Neck Exam: absent: Lymphadenopathy, Meningismus - Respiratory Exam Respiratory Exam: Decreased Breath Sounds - Cardiovascular Exam Cardiovascular Exam: +S1, +S2 - GI/Abdominal Exam GI & Abdominal Exam: Soft, Tenderness. absent: Distended, Guarding, Rigid, Rebound Assessment and Plan - Assessment and Plan (Free Text) Plan: Assessment Severe sepsis S/P acute renal failure due to abdominal wound skin and skin structure infection with abscess, after patient had liposuction 3 weeks ago S/P drainage of abscess yesterday; initial wound cx from 04/25 growing Group A Strep R/O pneumonia, right middle lobe obesity with BMI 37 HTN dyslipidemia S/P cholecystectomy Plan Continue Zyvox and Merrem (day 4) and follow up final results of wound cx from 04/29, 04/27; 04/25 cx are growing group A Strep Follow up plan of Surgery for further drainage and assessment of the right lower quadrant area will continue to monitor clinically and trend fever curve discussed with Dr. Huerta
[2017-05-01] MEDS: Pantoprazole 40 mg EC Tab PO SCH (05:49)
[2017-05-01 06:27] LABS: BASO # 0.03 K/mm3 (0.0-2.0); BASO % 0.2 % (0.0-3.0); EOS # 0.1 (0.0-0.7); EOS % 0.9 % (1.5-5.0); GRAN # 9.77 (1.4-6.5); GRAN % 76.4 % (50.0-68.0); LYMPH # 1.7 (1.2-3.4); MEAN CELL VOLUME 83.1 fl (80.0-105.0); MEAN CORPUSCULAR HEMOGLOBIN 28.3 pg (25.0-35.0); MEAN PLATELET VOLUME 9.2 fl (7.0-11.0); MONO # 1.2 (0.1-0.6); MONO % 9.5 % (1.0-6.0); RED CELL DISTRIBUTION WIDTH 14.5 % (11.5-14.5); WHITE BLOOD COUNT 12.8 10^3/ul (4.5-11.0)
[2017-05-01 06:43] LABS: ALB/GLOB RATIO 0.9 (1.1-1.8); ALKALINE PHOSPHATASE 86 U/L (38-126); ALT/SGPT 52 U/L (7-56); AST/SGOT 38 U/L (14-36); BILIRUBIN,TOTAL 0.4 mg/dL (0.2-1.3); BLOOD UREA NITROGEN 10 mg/dL (7-21); CALCIUM 8.5 mg/dL (8.4-10.5); CARBON DIOXIDE 35 mmol/L (21-33); CHLORIDE 100 mmol/L (98-107); GFR AFRICAN-AMERICAN > 60; GLUCOSE,RANDOM 93 mg/dL (70-110); POTASSIUM 3.3 mmol/L (3.6-5.0); SODIUM 143 mmol/L (132-148)
[2017-05-01] MEDS: Meropenem 1g/NS 100mL IVPB 1 GM/100 ML PIGGYBACK IVPB SCH (09:01)
[2017-05-01] MEDS ORDERED: Potassium Chloride 20 mEq ER Tab PO ONE (09:19)
[2017-05-01] MEDS: Linezolid 600 mg in D5W 300 ml 600 MG/300 ML BAG IVPB SCH ×2 (10:46→21:27)
--- NOTE | 2017-05-01 14:09 | CP.PCM.PN ---
Subjective - Date & Time of Evaluation Date of Evaluation: 05/01/17 Time of Evaluation: 11:00 - Subjective Subjective: Still with some pain in the left lower quadrant, no fevers overnight. Objective - Vital Signs/Intake and Output Vital Signs (last 24 hours): Temp Pulse Resp BP Pulse Ox 98.7 F 77 22 150/90 95 05/01/17 06:00 05/01/17 06:00 05/01/17 06:00 05/01/17 06:00 05/01/17 06:00 Intake and Output: 05/01/17 05/01/17 06:59 18:59 Intake Total 1480 Balance 1480 - Medications Medications: Current Medications Acetaminophen (Tylenol 325mg Tab) 650 mg PO Q6H PRN PRN Reason: Fever >100.4 F Last Admin: 04/30/17 17:12 Dose: 650 mg Linezolid (Zyvox 600mg/300ml D5w) 600 mg in 300 mls @ 200 mls/hr IVPB Q12 OLIVIA PRN Reason: Protocol Stop: 05/05/17 10:01 Last Admin: 04/30/17 22:48 Dose: 200 mls/hr Ondansetron HCl (Zofran Inj) 4 mg IVP Q6 PRN PRN Reason: Nausea/Vomiting Last Admin: 04/30/17 04:23 Dose: 4 mg Pantoprazole Sodium (Protonix Ec Tab) 40 mg PO 0600 [facility] Last Admin: 05/01/17 05:49 Dose: 40 mg Valacyclovir HCl (Valtrex) 1,000 mg PO BID OLIVIA PRN Reason: Protocol Stop: 05/06/17 23:59 Last Admin: 05/01/17 09:01 Dose: 1,000 mg - Labs Labs: 05/01/17 06:12 05/01/17 06:12 PT 10.7 Seconds (9.9-11.8) 04/25/17 01:30 INR 0.99 (0.93-1.08) 04/25/17 01:30 APTT 22.0 Seconds (23.7-30.8) L 04/25/17 01:30 - Constitutional Appears: Non-toxic, No Acute Distress - Head Exam Head Exam: NORMAL INSPECTION - ENT Exam ENT Exam: Mucous Membranes Moist - Neck Exam Neck Exam: absent: Meningismus - Respiratory Exam Respiratory Exam: Decreased Breath Sounds - Cardiovascular Exam Cardiovascular Exam: +S1, +S2 - GI/Abdominal Exam GI & Abdominal Exam: Soft, Tenderness (LLQ area). absent: Distended, Guarding, Rigid, Rebound Assessment and Plan - Assessment and Plan (Free Text) Plan: Assessment Severe sepsis S/P acute renal failure due to abdominal wound skin and skin structure infection with abscess, after patient had liposuction 3 weeks ago S/P drainage of abscess yesterday; initial wound cx from 04/25 growing Group A Strep R/O pneumonia, right middle lobe obesity with BMI 37 HTN dyslipidemia S/P cholecystectomy Plan Continue Zyvox (day 5); 04/25 cx are growing group A Strep Follow up plan of Surgery for further drainage and assessment of the left lower quadrant area (for Ultrasound of the abdomen to see if there still is something to be drained will continue to monitor clinically and trend fever curve discussed with Dr. Huerta
--- NOTE | 2017-05-01 14:40 | CP.PCM.PN ---
Subjective - Date & Time of Evaluation Date of Evaluation: 05/01/17 Time of Evaluation: 14:36 - Subjective Subjective: General Surgery Progress note for Dr. Mendoza PT S&E at bedside. QUINTON. Per nursing, hallucination was associated with percocet. Percocet was discontinued. Vitals Stable. Patient resting well in bed. Patient has no complaints at this time. Patient denies F/C,N/V. Admits to abdominal pain Objective - Vital Signs/Intake and Output Vital Signs (last 24 hours): Temp Pulse Resp BP Pulse Ox 98.7 F 77 22 150/90 95 05/01/17 06:00 05/01/17 06:00 05/01/17 06:00 05/01/17 06:00 05/01/17 06:00 Intake and Output: 05/01/17 05/01/17 06:59 18:59 Intake Total 1480 Balance 1480 - Medications Medications: Current Medications Acetaminophen (Tylenol 325mg Tab) 650 mg PO Q6H PRN PRN Reason: Fever >100.4 F Last Admin: 04/30/17 17:12 Dose: 650 mg Linezolid (Zyvox 600mg/300ml D5w) 600 mg in 300 mls @ 200 mls/hr IVPB Q12 OLIVIA PRN Reason: Protocol Stop: 05/05/17 10:01 Last Admin: 05/01/17 10:46 Dose: 200 mls/hr Ondansetron HCl (Zofran Inj) 4 mg IVP Q6 PRN PRN Reason: Nausea/Vomiting Last Admin: 04/30/17 04:23 Dose: 4 mg Pantoprazole Sodium (Protonix Ec Tab) 40 mg PO 0600 OL[facility] Last Admin: 05/01/17 05:49 Dose: 40 mg Valacyclovir HCl (Valtrex) 1,000 mg PO BID OLIVIA PRN Reason: Protocol Stop: 05/06/17 23:59 Last Admin: 05/01/17 09:01 Dose: 1,000 mg - Labs Labs: 05/01/17 06:12 05/01/17 06:12 PT 10.7 Seconds (9.9-11.8) 04/25/17 01:30 INR 0.99 (0.93-1.08) 04/25/17 01:30 APTT 22.0 Seconds (23.7-30.8) L 04/25/17 01:30 - Constitutional Appears: Non-toxic - Head Exam Head Exam: NORMAL INSPECTION - Eye Exam Eye Exam: EOMI, Normal appearance - ENT Exam ENT Exam: Mucous Membranes Moist - Neck Exam Neck Exam: Full ROM, Normal Inspection - Respiratory Exam Respiratory Exam: Clear to Ausculation Bilateral. absent: Accessory Muscle Use , Respiratory Distress - Cardiovascular Exam Cardiovascular Exam: REGULAR RHYTHM. absent: Bradycardia, Tachycardia - GI/Abdominal Exam GI & Abdominal Exam: Soft, Tenderness. absent: Distended, Guarding, Rigid Additional comments: RLQ and LLQ tenderness. improved compared to yesterday less areas of induration. striae continues to be noted on skin exam of abdomen - Extremities Exam Extremities Exam: Full ROM. absent: Pedal Edema - Neurological Exam Neurological Exam: Alert, Awake, Oriented x3 - Psychiatric Exam Psychiatric exam: Normal Affect, Normal Mood - Skin Skin Exam: Dry, Normal Color, Warm Additional comments: liposuction insertion sites visualized LLQ drainage Assessment and Plan - Assessment and Plan (Free Text) Assessment: 36yo F w/ abdominal fluid collection s/p laser liposuction Plan: c/w ID recommendations for abx c/w new pain management c/w medical management per medicine team f/u Vitals AM labs d/w Dr. Reji Betancourt, DO PGY1 surgery pager: [phone]
--- NOTE | 2017-05-01 15:58 | US ---
PROCEDURE: Limited abdomen ultrasound examination HISTORY: Abd Wall to look for abcess/ fluid collection COMPARISON: And pelvis CT examination 04/25/2017 TECHNIQUE: Longitudinal and transverse ultrasonography was performed on the anterior abdominal wall including the pelvis wall for evaluation of fluid collections identified an abdomen pelvis CT examination 04/25/2017. Patient status post recent abdominal wall procedure. FINDINGS: Multifocal fluid collections are identified at the right greater than left anterior abdominal wall extending into the right and left pelvic hanson as well measuring a minimum a 7.1 x 1.7 cm at the right lower quadrant abdominal wall, 6.1 x 1.3 cm at the right and left lower quadrants bridging the midline. There is limited associated surrounding blood flow and local soft tissues. The fluid character varies from minimally to moderately complex. Complex seromata are likely however abscesses cannot be excluded. Chronic, resolving hematomata are possible as well. If not already performed, consider ultrasound or CT guided aspiration. IMPRESSION: Multifocal complex fluid collections are identified at the inferior abdominal wall not only at the midline but also bilaterally and extend into the hanson overlying the pelvis as well. The lack of prominent local soft tissue color Doppler blood flow may indicate that these are complex seromata, however, abscesses are not excluded. Resolving hematoma are also possible. Ultrasound or CT-guided aspiration is recommended if not already performed for more definitive diagnosis.
--- NOTE | 2017-05-01 17:00 | CP.PCM.PN ---
<Shelly Pereajeana - Last Filed: 05/01/17 16:57> Subjective - Date & Time of Evaluation Date of Evaluation: 05/01/17 Time of Evaluation: 09:00 - Subjective Subjective: Patient has been seen and examined. She denies any fevers or chills. She still complains of lower abdominal pain and fullness. Patient still complains of SOB that is improved from yesterday. Denies any chest pain, or changes in bowel or urinary habits Objective - Vital Signs/Intake and Output Vital Signs (last 24 hours): Temp Pulse Resp BP Pulse Ox 98.7 F 77 22 150/90 95 05/01/17 06:00 05/01/17 06:00 05/01/17 06:00 05/01/17 06:00 05/01/17 06:00 Intake and Output: 05/01/17 05/01/17 06:59 18:59 Intake Total 1480 Balance 1480 - Medications Medications: Current Medications Acetaminophen (Tylenol 325mg Tab) 650 mg PO Q6H PRN PRN Reason: Fever >100.4 F Last Admin: 04/30/17 17:12 Dose: 650 mg Linezolid (Zyvox 600mg/300ml D5w) 600 mg in 300 mls @ 200 mls/hr IVPB Q12 OLIVIA PRN Reason: Protocol Stop: 05/05/17 10:01 Last Admin: 05/01/17 10:46 Dose: 200 mls/hr Ondansetron HCl (Zofran Inj) 4 mg IVP Q6 PRN PRN Reason: Nausea/Vomiting Last Admin: 04/30/17 04:23 Dose: 4 mg Pantoprazole Sodium (Protonix Ec Tab) 40 mg PO 0600 [facility] Last Admin: 05/01/17 05:49 Dose: 40 mg Valacyclovir HCl (Valtrex) 1,000 mg PO BID OLIVIA PRN Reason: Protocol Stop: 05/06/17 23:59 Last Admin: 05/01/17 09:01 Dose: 1,000 mg - Labs Labs: 05/01/17 06:12 05/01/17 06:12 PT 10.7 Seconds (9.9-11.8) 04/25/17 01:30 INR 0.99 (0.93-1.08) 04/25/17 01:30 APTT 22.0 Seconds (23.7-30.8) L 04/25/17 01:30 - Constitutional Appears: Non-toxic, No Acute Distress - Head Exam Head Exam: ATRAUMATIC, NORMAL INSPECTION, NORMOCEPHALIC - Eye Exam Eye Exam: Normal appearance - Respiratory Exam Respiratory Exam: Clear to Ausculation Bilateral. absent: Rales, Rhonchi, Wheezes - GI/Abdominal Exam GI & Abdominal Exam: Distended, Rigid, Tenderness, Normal Bowel Sounds - Extremities Exam Extremities Exam: Normal Inspection. absent: Pedal Edema - Neurological Exam Neurological Exam: Alert, Awake, Oriented x3 - Psychiatric Exam Psychiatric exam: Anxious Assessment and Plan - Assessment and Plan (Free Text) Assessment: This is a 36 year old female with past medical history of hypertension and recent laser liposuction who presents with abdominal pain and fever. Plan: Sepsis 2/2 to abdominal wall infection CT abd/pelvis showed abdominal wall collection (seroma vs resolving hematoma vs abscess). -Surgery and ID evaluation were appreciated. -Continue with iv antibiotics. (Zyvox and Meropenem per ID). PRN Tylenol for fever. -Urine and Blood cultures are negative. Wound (04/25) cultures grew Streptococcus Pyogenes Grp A. 04/27 wound cultures grew nothing. -35cc of purulent fluid drained at bedside of LLQ. 5ccs on RLQ -Abd Wall US on (05/01) showed multifocal complex fluid collections. Complex seromata vs abscess vs resolving hematoma. US or CT guided recommended aspiration Community Acquired Pneumonia Continue with antibiotics. -CXR showed developing RLL PNA. Patient already on broad spectrum antibiotics. Oral herpes -Valtrex 1000 BID for 7 days. Hypertension -Restart anti-hypertensives Continue with protonix for GI prophylaxis and SCDs for DVT prophylaxis. Percocet 5-325 for pain control. Patient seen, examined, and reviewed with Attending Dispo: Planned on DC if US showed no fluid collection, but it did. Will talk to Surgery or about aspiration. Shell Perea PGY-1 <Bradley STACY,Sonia - Last Filed: 05/02/17 13:55> Objective - Vital Signs/Intake and Output Vital Signs (last 24 hours): Temp Pulse Resp BP Pulse Ox 99.5 F 76 20 160/90 H 96 05/02/17 06:00 05/02/17 06:00 05/02/17 06:00 05/02/17 09:05 05/02/17 06:00 Intake and Output: 05/02/17 05/02/17 06:59 18:59 Intake Total 740 980 Balance 740 980 - Medications Medications: Current Medications Acetaminophen (Tylenol 325mg Tab) 650 mg PO Q6H PRN PRN Reason: Fever >100.4 F Last Admin: 05/01/17 18:02 Dose: 650 mg Amlodipine Besylate (Norvasc) 10 mg PO DAILY [facility] Last Admin: 05/02/17 09:05 Dose: 10 mg Linezolid (Zyvox 600mg/300ml D5w) 600 mg in 300 mls @ 200 mls/hr IVPB Q12 OLIVIA PRN Reason: Protocol Stop: 05/05/17 10:01 Last Admin: 05/02/17 09:05 Dose: 200 mls/hr Ondansetron HCl (Zofran Inj) 4 mg IVP Q6 PRN PRN Reason: Nausea/Vomiting Last Admin: 05/02/17 06:33 Dose: 4 mg Pantoprazole Sodium (Protonix Ec Tab) 40 mg PO 0600 [facility] Last Admin: 05/02/17 06:32 Dose: 40 mg Valacyclovir HCl (Valtrex) 1,000 mg PO BID OLIVIA PRN Reason: Protocol Stop: 05/06/17 23:59 Last Admin: 05/02/17 09:05 Dose: 1,000 mg - Labs Labs: 05/02/17 06:46 05/02/17 05:00 PT 10.7 Seconds (9.9-11.8) 04/25/17 01:30 INR 0.99 (0.93-1.08) 04/25/17 01:30 APTT 22.0 Seconds (23.7-30.8) L 04/25/17 01:30 Attending/Attestation - Attestation I have personally seen and examined this patient.: Yes I have fully participated in the care of the patient.: Yes I have reviewed all pertinent clinical information, including history, physical exam and plan: Yes Notes (Text): 05/02/17 13:53 Patient was seen and examined with bilingual medical receptionist. Agreed with resident assessment and plan. Patient is feeling better, will follow up with surgery regarding USG finding, if no plan for any intervention, can be discharged home and will follow up with her Surgeon and PCP. Patient is ambulatory and is on room air. Management plan was discussed in detail with patient Education was provided.
[2017-05-01 17:48] VITALS: O2SAT 96
[2017-05-02] MEDS: Pantoprazole 40 mg EC Tab PO SCH (06:32)
[2017-05-02 07:04] LABS: BASO # 0.03 K/mm3 (0.0-2.0); BASO % 0.3 % (0.0-3.0); EOS # 0.1 (0.0-0.7); GRAN # 8.66 (1.4-6.5); GRAN % 73.8 % (50.0-68.0); HEMATOCRIT 32.6 % (36.0-48.0); LYMPH % 17.1 % (22.0-35.0); MEAN CELL VOLUME 83.6 fl (80.0-105.0); MEAN CORPUSCULAR HEMOGLOBIN 28.5 pg (25.0-35.0); MEAN PLATELET VOLUME 9.1 fl (7.0-11.0); MONO # 0.9 (0.1-0.6); MONO % 7.8 % (1.0-6.0); RED CELL DISTRIBUTION WIDTH 14.4 % (11.5-14.5); WHITE BLOOD COUNT 11.7 10^3/ul (4.5-11.0)
[2017-05-02 07:16] LABS: ALB/GLOB RATIO 0.8 (1.1-1.8); ALKALINE PHOSPHATASE 85 U/L (38-126); ALT/SGPT 53 U/L (7-56); AST/SGOT 55 U/L (14-36); BILIRUBIN,TOTAL 0.4 mg/dL (0.2-1.3); BLOOD UREA NITROGEN 9 mg/dL (7-21); CALCIUM 8.6 mg/dL (8.4-10.5); CARBON DIOXIDE 32 mmol/L (21-33); CHLORIDE 99 mmol/L (98-107); GFR AFRICAN-AMERICAN > 60; GLUCOSE,RANDOM 107 mg/dL (70-110); POTASSIUM 3.2 mmol/L (3.6-5.0); SODIUM 142 mmol/L (132-148); TOTAL PROTEIN 6.6 g/dL (5.8-8.3)
[2017-05-02] MEDS ORDERED: Potassium Chloride 20 mEq ER Tab PO ONE (08:13)
[2017-05-02] MEDS: Linezolid 600 mg in D5W 300 ml 600 MG/300 ML BAG IVPB SCH (09:05)
[2017-05-02 09:09] VITALS: BP 160/90
[2017-05-02 09:47] VITALS: PULSE 76; RESP 20; TEMP 99.5
--- NOTE | 2017-05-02 11:59 | CP.PCM.PN ---
Subjective - Date & Time of Evaluation Date of Evaluation: 05/02/17 Time of Evaluation: 07:30 - Subjective Subjective: Pt S&E this AM. NAEO. Patient afebrile. Reports feeling much better. Denies fever/chills, n/v, abdominal pain. Objective - Vital Signs/Intake and Output Vital Signs (last 24 hours): Temp Pulse Resp BP Pulse Ox 99.5 F 76 20 160/90 H 96 05/02/17 06:00 05/02/17 06:00 05/02/17 06:00 05/02/17 09:05 05/02/17 06:00 Intake and Output: 05/02/17 05/02/17 06:59 18:59 Intake Total 740 980 Balance 740 980 - Medications Medications: Current Medications Acetaminophen (Tylenol 325mg Tab) 650 mg PO Q6H PRN PRN Reason: Fever >100.4 F Last Admin: 05/01/17 18:02 Dose: 650 mg Amlodipine Besylate (Norvasc) 10 mg PO DAILY [facility] Last Admin: 05/02/17 09:05 Dose: 10 mg Linezolid (Zyvox 600mg/300ml D5w) 600 mg in 300 mls @ 200 mls/hr IVPB Q12 OLIVIA PRN Reason: Protocol Stop: 05/05/17 10:01 Last Admin: 05/02/17 09:05 Dose: 200 mls/hr Ondansetron HCl (Zofran Inj) 4 mg IVP Q6 PRN PRN Reason: Nausea/Vomiting Last Admin: 05/02/17 06:33 Dose: 4 mg Pantoprazole Sodium (Protonix Ec Tab) 40 mg PO 0600 [facility] Last Admin: 05/02/17 06:32 Dose: 40 mg Valacyclovir HCl (Valtrex) 1,000 mg PO BID OLIVIA PRN Reason: Protocol Stop: 05/06/17 23:59 Last Admin: 05/02/17 09:05 Dose: 1,000 mg - Labs Labs: 05/02/17 06:46 05/02/17 05:00 PT 10.7 Seconds (9.9-11.8) 04/25/17 01:30 INR 0.99 (0.93-1.08) 04/25/17 01:30 APTT 22.0 Seconds (23.7-30.8) L 04/25/17 01:30 - Constitutional Appears: No Acute Distress - Head Exam Head Exam: NORMOCEPHALIC - Eye Exam Eye Exam: Normal appearance - ENT Exam ENT Exam: Mucous Membranes Moist - Respiratory Exam Respiratory Exam: NORMAL BREATHING PATTERN - Cardiovascular Exam Cardiovascular Exam: +S1, +S2 - GI/Abdominal Exam GI & Abdominal Exam: Soft. absent: Distended, Firm, Guarding, Rigid Additional comments: abdominal skin erythema has vastly improved Some drainage from LLQ - Neurological Exam Neurological Exam: Alert, Awake, Oriented x3 - Psychiatric Exam Psychiatric exam: Normal Mood - Skin Skin Exam: Normal Color. absent: Erythema Assessment and Plan - Assessment and Plan (Free Text) Assessment: 36yo F w/ multiple collections along abdomen s/p laser liposuction -From surgical standpoint, no further intervention -Recommend discharge from surgery standpoint -C/w PO abx as per ID -D/w Dr. Reji Wilson PGY-2
--- NOTE | 2017-05-02 12:22 | CP.PCM.PN ---
Subjective - Date & Time of Evaluation Date of Evaluation: 05/02/17 Time of Evaluation: 11:10 - Subjective Subjective: Abdominal pain is less, no fevers overnight, no nausea or vomiting, no diarrhea. Objective - Vital Signs/Intake and Output Vital Signs (last 24 hours): Temp Pulse Resp BP Pulse Ox 98.6 F 55 L 18 159/89 H 96 05/01/17 16:00 05/01/17 16:00 05/01/17 16:00 05/01/17 17:58 05/01/17 16:00 Intake and Output: 05/02/17 05/02/17 06:59 18:59 Intake Total 740 980 Balance 740 980 - Medications Medications: Current Medications Acetaminophen (Tylenol 325mg Tab) 650 mg PO Q6H PRN PRN Reason: Fever >100.4 F Last Admin: 05/01/17 18:02 Dose: 650 mg Amlodipine Besylate (Norvasc) 10 mg PO DAILY [facility] Last Admin: 05/01/17 17:58 Dose: 10 mg Linezolid (Zyvox 600mg/300ml D5w) 600 mg in 300 mls @ 200 mls/hr IVPB Q12 OLIVIA PRN Reason: Protocol Stop: 05/05/17 10:01 Last Admin: 05/01/17 21:27 Dose: 200 mls/hr Ondansetron HCl (Zofran Inj) 4 mg IVP Q6 PRN PRN Reason: Nausea/Vomiting Last Admin: 05/02/17 06:33 Dose: 4 mg Pantoprazole Sodium (Protonix Ec Tab) 40 mg PO 0600 [facility] Last Admin: 05/02/17 06:32 Dose: 40 mg Valacyclovir HCl (Valtrex) 1,000 mg PO BID OLIVIA PRN Reason: Protocol Stop: 05/06/17 23:59 Last Admin: 05/01/17 17:58 Dose: 1,000 mg - Labs Labs: 05/02/17 06:46 05/02/17 05:00 PT 10.7 Seconds (9.9-11.8) 04/25/17 01:30 INR 0.99 (0.93-1.08) 04/25/17 01:30 APTT 22.0 Seconds (23.7-30.8) L 04/25/17 01:30 - Constitutional Appears: Non-toxic, No Acute Distress - Head Exam Head Exam: NORMAL INSPECTION - ENT Exam ENT Exam: Mucous Membranes Moist - Neck Exam Neck Exam: absent: Meningismus - Respiratory Exam Respiratory Exam: Decreased Breath Sounds - Cardiovascular Exam Cardiovascular Exam: +S1, +S2 - GI/Abdominal Exam GI & Abdominal Exam: Soft, Tenderness (mild, LLQ area). absent: Distended, Guarding, Rigid, Rebound Assessment and Plan - Assessment and Plan (Free Text) Plan: Assessment Severe sepsis S/P acute renal failure due to abdominal wound skin and skin structure infection with abscess, after patient had liposuction 3 weeks ago S/P drainage of abscess yesterday; initial wound cx from 04/25 growing Group A Strep R/O pneumonia, right middle lobe obesity with BMI 37 HTN dyslipidemia S/P cholecystectomy Plan Continue Zyvox (day 6); 04/25 cx are growing group A Strep Follow up plan of Surgery for further drainage and assessment of the left lower quadrant area
--- NOTE | 2017-05-02 15:15 | CP.PCM.DIS ---
<Shell Perea - Last Filed: 05/02/17 20:40> Provider - Provider Date of Admission: 04/25/17 06:38 Attending physician: Sonia Huerta MD Consults: Surgery - Dr. Mendoza IR - Dr. Rivera ID - Dr. Montes Time Spent in preparation of Discharge (in minutes): 45 Diagnosis - Discharge Diagnosis (1) Abdominal wall abscess Status: Acute (2) Sepsis Status: Resolved Hospital Course - Lab Results Lab Results: Micro Results 05/02/17 11:04 Stool C. difficile Antigen & Toxin A,B (M - Final 04/27/17 15:00 Abscess - Abscess Gram Stain - Final 04/27/17 15:00 Abscess - Abscess Wound Culture - Final No growth. 04/26/17 00:40 Urine Urine Culture - Final No Growth (<1,000 CFU/ML) 04/25/17 13:51 Abdomen Gram Stain - Final 04/25/17 13:51 Abdomen Wound Culture - Final Streptococcus Pyogenes Grp A Most Recent Lab Values WBC 11.7 10^3/ul (4.5-11.0) H 05/02/17 06:46 RBC 3.90 10^6/uL (3.5-6.1) 05/02/17 06:46 Hgb 11.1 g/dL (12.0-16.0) L 05/02/17 06:46 Hct 32.6 % (36.0-48.0) L 05/02/17 06:46 MCV 83.6 fl (80.0-105.0) 05/02/17 06:46 MCH 28.5 pg (25.0-35.0) 05/02/17 06:46 MCHC 34.0 g/dl (31.0-37.0) 05/02/17 06:46 RDW 14.4 % (11.5-14.5) 05/02/17 06:46 Plt Count 304 10^3/uL (120.0-450.0) 05/02/17 06:46 MPV 9.1 fl (7.0-11.0) 05/02/17 06:46 Gran % 73.8 % (50.0-68.0) H 05/02/17 06:46 Lymph % (Auto) 17.1 % (22.0-35.0) L 05/02/17 06:46 [place] % (Auto) 7.8 % (1.0-6.0) H 05/02/17 06:46 Eos % (Auto) 1.0 % (1.5-5.0) L 05/02/17 06:46 Baso % (Auto) 0.3 % (0.0-3.0) 05/02/17 06:46 Gran # 8.66 (1.4-6.5) H 05/02/17 06:46 Lymph # 2.0 (1.2-3.4) 05/02/17 06:46 [place] # 0.9 (0.1-0.6) H 05/02/17 06:46 Eos # 0.1 (0.0-0.7) 05/02/17 06:46 Baso # 0.03 K/mm3 (0.0-2.0) 05/02/17 06:46 Neutrophils % (Manual) 90 % (50.0-70.0) H 04/25/17 01:30 Band Neutrophils % 4 % (0-2) H 04/25/17 01:30 Lymphocytes % (Manual) 4 % (22.0-35.0) L 04/25/17 01:30 Monocytes % (Manual) 1 % (1.0-6.0) 04/25/17 01:30 Eosinophils % (Manual) 1 % (0.0-3.0) 04/25/17 01:30 Platelet Evaluation Normal (NORMAL) 04/25/17 01:30 PT 10.7 Seconds (9.9-11.8) 04/25/17 01:30 INR 0.99 (0.93-1.08) 04/25/17 01:30 APTT 22.0 Seconds (23.7-30.8) L 04/25/17 01:30 pO2 71 mm/Hg (30-55) H 04/25/17 04:41 VBG pH 7.37 (7.32-7.43) 04/25/17 04:41 VBG pCO2 41.0 (40-60) 04/25/17 04:41 VBG HCO3 23.7 mmol/l (21-28) 04/25/17 04:41 VBG Total CO2 25.0 mmol.L (22-28) 04/25/17 04:41 VBG O2 Sat (Calc) 96.2 % (40-65) H 04/25/17 04:41 VBG Base Excess -1.5 mmol/L (0.0-2.0) L 04/25/17 04:41 VBG Potassium 3.5 mmol/L (3.6-5.2) L 04/25/17 04:41 Sodium 135.0 mmol/L (132-148) 04/25/17 04:41 Chloride 103.0 mmol/L (98-107) 04/25/17 04:41 Glucose 109 mg/dl (65-105) H 04/25/17 04:41 Lactate 2.9 mmol/L (0.7-2.1) H 04/25/17 04:41 FiO2 21.0 % 04/25/17 04:41 Sodium 142 mmol/L (132-148) 05/02/17 05:00 Potassium 3.2 mmol/L (3.6-5.0) L 05/02/17 05:00 Chloride 99 mmol/L (98-107) 05/02/17 05:00 Carbon Dioxide 32 mmol/L (21-33) 05/02/17 05:00 Anion Gap 14 (10-20) 05/02/17 05:00 BUN 9 mg/dL (7-21) 05/02/17 05:00 Creatinine 0.8 mg/dL (0.5-1.4) 05/02/17 05:00 Est GFR ( Amer) > 60 05/02/17 05:00 Est GFR (Non-Af Amer) > 60 05/02/17 05:00 Random Glucose 107 mg/dL (70-110) 05/02/17 05:00 Calcium 8.6 mg/dL (8.4-10.5) 05/02/17 05:00 Total Bilirubin 0.4 mg/dL (0.2-1.3) 05/02/17 05:00 AST 55 U/L (14-36) H D 05/02/17 05:00 ALT 53 U/L (7-56) 05/02/17 05:00 Alkaline Phosphatase 85 U/L (38-126) 05/02/17 05:00 NT-Pro-B Natriuret Pep 3100 pg/mL (0-450) H 04/27/17 17:35 Total Protein 6.6 g/dL (5.8-8.3) 05/02/17 05:00 Albumin 2.9 g/dL (3.0-4.8) L 05/02/17 05:00 Globulin 3.7 gm/dL 05/02/17 05:00 Albumin/Globulin Ratio 0.8 (1.1-1.8) L 05/02/17 05:00 Procalcitonin 4.53 NG/ML (0.19-0.49) H 04/27/17 17:35 Venous Blood Potassium 3.5 mmol/L (3.6-5.2) L 04/25/17 04:41 HIV 1&2 Ag/Ab, 4th Gen Nonreactive (Nonreactive) 04/25/17 10:45 - Hospital Course Hospital Course: This is a 36 year old female with past medical history of hypertension and recent laser liposuction who presented with abdominal pain and fever. CT abd/ pelvis showed abdominal wall collection (seroma vs resolving hematoma vs abscess ). Surgery, ID, and IR were consulted on the case. Patient was started on Zyvox and meropenem per ID. Surgery drained 35 cc of purulent fluid at bedside from the LLQ and 5cc of seropuruelent fluid from the LLQ. Gram stain on 04/25 aspiration grew Streptococcus Pyogenes Group A. Second wound culture, blood culture, urine culture, and stool for c-diff were negative. Abdominal wall was reassessed with abdominal wall US which similar findings as original CT abd/ pelvis. IR and surgery said fluid collection was enough for aspiration. At this point patients leukocytosis resolved and she was no longer spiking fevers. Hospital course was complicated by Pneumonia which was covered using same antibiotics for abdominal wall treatment. CXR showed developing Right lower lobe pneumonia. Patient required about 5L of oxygen at the time of PNY diagnoses but was eventually tapered to room air. Patient was also ambulatory. Hospital course was also complicated by vesicular rash on lip which was treated with Valtrex. Patient was discharged home with Zyvox and Valtrex. She was told she could take OTC ibuprofen with food for pain control. Patient was recommended to follow up with her PMD and surgeon who did her laser liposuction surgery within 1 week. Patient is agreeable to plan and medications. Patient seen, reviewed, and discussed with attending. Shell Perea PGY1 Discharge Exam - Head Exam Head Exam: NORMAL INSPECTION - Eye Exam Eye Exam: EOMI, Normal appearance - ENT Exam ENT Exam: Mucous Membranes Moist - Respiratory Exam Respiratory Exam: Clear to PA & Lateral, UNREMARKABLE - Cardiovascular Exam Cardiovascular Exam: RRR, +S1, +S2 - GI/Abdominal Exam Additional comments: lower quadrant tenderness and slight rigidity (much improved) - Extremities Exam Additional comments: NO pedal edema - Neurological Exam Neurological exam: Alert, Normal Gait, Oriented x3 - Psychiatric Exam Psychiatric exam: Normal Affect, Normal Mood - Skin Skin Exam: Dry, Intact, Normal Color, Warm Discharge Plan - Discharge Medications Prescriptions: Linezolid [Zyvox] 600 mg PO BID #14 tab valACYclovir [Valtrex] 1,000 mg PO BID #6 tab - Follow Up Plan Condition: FAIR Disposition: HOME/ ROUTINE Instructions: Sepsis (GEN), Abscess (GEN) Additional Instructions: Complete your antibiotic and antiviral regiment Follow up with your primary doctor within a week Follow up with your surgeon who did liposuction within 1 week You can take over the counter ibuprofen with food for pain. <Bradley STACY,Sonia - Last Filed: 05/03/17 10:29> Provider - Provider Date of Admission: 04/25/17 06:38 Attending physician: Sonia Huerta MD Hospital Course - Lab Results Lab Results: Micro Results 05/02/17 11:04 Stool C. difficile Antigen & Toxin A,B (M - Final 04/27/17 15:00 Abscess - Abscess Gram Stain - Final 04/27/17 15:00 Abscess - Abscess Wound Culture - Final No growth. 04/26/17 00:40 Urine Urine Culture - Final No Growth (<1,000 CFU/ML) 04/25/17 13:51 Abdomen Gram Stain - Final 04/25/17 13:51 Abdomen Wound Culture - Final Streptococcus Pyogenes Grp A Most Recent Lab Values WBC 11.7 10^3/ul (4.5-11.0) H 05/02/17 06:46 RBC 3.90 10^6/uL (3.5-6.1) 05/02/17 06:46 Hgb 11.1 g/dL (12.0-16.0) L 05/02/17 06:46 Hct 32.6 % (36.0-48.0) L 05/02/17 06:46 MCV 83.6 fl (80.0-105.0) 05/02/17 06:46 MCH 28.5 pg (25.0-35.0) 05/02/17 06:46 MCHC 34.0 g/dl (31.0-37.0) 05/02/17 06:46 RDW 14.4 % (11.5-14.5) 05/02/17 06:46 Plt Count 304 10^3/uL (120.0-450.0) 05/02/17 06:46 MPV 9.1 fl (7.0-11.0) 05/02/17 06:46 Gran % 73.8 % (50.0-68.0) H 05/02/17 06:46 Lymph % (Auto) 17.1 % (22.0-35.0) L 05/02/17 06:46 [place] % (Auto) 7.8 % (1.0-6.0) H 05/02/17 06:46 Eos % (Auto) 1.0 % (1.5-5.0) L 05/02/17 06:46 Baso % (Auto) 0.3 % (0.0-3.0) 05/02/17 06:46 Gran # 8.66 (1.4-6.5) H 05/02/17 06:46 Lymph # 2.0 (1.2-3.4) 05/02/17 06:46 [place] # 0.9 (0.1-0.6) H 05/02/17 06:46 Eos # 0.1 (0.0-0.7) 05/02/17 06:46 Baso # 0.03 K/mm3 (0.0-2.0) 05/02/17 06:46 Neutrophils % (Manual) 90 % (50.0-70.0) H 04/25/17 01:30 Band Neutrophils % 4 % (0-2) H 04/25/17 01:30 Lymphocytes % (Manual) 4 % (22.0-35.0) L 04/25/17 01:30 Monocytes % (Manual) 1 % (1.0-6.0) 04/25/17 01:30 Eosinophils % (Manual) 1 % (0.0-3.0) 04/25/17 01:30 Platelet Evaluation Normal (NORMAL) 04/25/17 01:30 PT 10.7 Seconds (9.9-11.8) 04/25/17 01:30 INR 0.99 (0.93-1.08) 04/25/17 01:30 APTT 22.0 Seconds (23.7-30.8) L 04/25/17 01:30 pO2 71 mm/Hg (30-55) H 04/25/17 04:41 VBG pH 7.37 (7.32-7.43) 04/25/17 04:41 VBG pCO2 41.0 (40-60) 04/25/17 04:41 VBG HCO3 23.7 mmol/l (21-28) 04/25/17 04:41 VBG Total CO2 25.0 mmol.L (22-28) 04/25/17 04:41 VBG O2 Sat (Calc) 96.2 % (40-65) H 04/25/17 04:41 VBG Base Excess -1.5 mmol/L (0.0-2.0) L 04/25/17 04:41 VBG Potassium 3.5 mmol/L (3.6-5.2) L 04/25/17 04:41 Sodium 135.0 mmol/L (132-148) 04/25/17 04:41 Chloride 103.0 mmol/L (98-107) 04/25/17 04:41 Glucose 109 mg/dl (65-105) H 04/25/17 04:41 Lactate 2.9 mmol/L (0.7-2.1) H 04/25/17 04:41 FiO2 21.0 % 04/25/17 04:41 Sodium 142 mmol/L (132-148) 05/02/17 05:00 Potassium 3.2 mmol/L (3.6-5.0) L 05/02/17 05:00 Chloride 99 mmol/L (98-107) 05/02/17 05:00 Carbon Dioxide 32 mmol/L (21-33) 05/02/17 05:00 Anion Gap 14 (10-20) 05/02/17 05:00 BUN 9 mg/dL (7-21) 05/02/17 05:00 Creatinine 0.8 mg/dL (0.5-1.4) 05/02/17 05:00 Est GFR ( Amer) > 60 05/02/17 05:00 Est GFR (Non-Af Amer) > 60 05/02/17 05:00 Random Glucose 107 mg/dL (70-110) 05/02/17 05:00 Calcium 8.6 mg/dL (8.4-10.5) 05/02/17 05:00 Total Bilirubin 0.4 mg/dL (0.2-1.3) 05/02/17 05:00 AST 55 U/L (14-36) H D 05/02/17 05:00 ALT 53 U/L (7-56) 05/02/17 05:00 Alkaline Phosphatase 85 U/L (38-126) 05/02/17 05:00 NT-Pro-B Natriuret Pep 3100 pg/mL (0-450) H 04/27/17 17:35 Total Protein 6.6 g/dL (5.8-8.3) 05/02/17 05:00 Albumin 2.9 g/dL (3.0-4.8) L 05/02/17 05:00 Globulin 3.7 gm/dL 05/02/17 05:00 Albumin/Globulin Ratio 0.8 (1.1-1.8) L 05/02/17 05:00 Procalcitonin 4.53 NG/ML (0.19-0.49) H 04/27/17 17:35 Venous Blood Potassium 3.5 mmol/L (3.6-5.2) L 04/25/17 04:41 HIV 1&2 Ag/Ab, 4th Gen Nonreactive (Nonreactive) 04/25/17 10:45 Attending/Attestation - Attestation I have personally seen and examined this patient.: Yes I have fully participated in the care of the patient.: Yes I have reviewed all pertinent clinical information, including history, physical exam and plan: Yes Notes (Text): 05/03/17 10:21 Patient was seen and examined with medical delivery driver. Agreed with resident assessment and plan. 36 year old female with past medical history of hypertension and recent laser liposuction who presented with abdominal pain and fever. CT abd/pelvis showed abdominal wall collection (seroma vs resolving hematoma vs abscess). Patient had I/D by surgery,Wound cultures are grew Streptococu Pyogene .Blood cultures are negative for any growth. Patient later on started having Respiratory symptoms, Chest X ray showed new right middle lobe infiltrate, HCAP Pneumonia..Patient was treated with broad spectrum IV antibiotics.Patient was evaluated by IR, no drainable fluid at this time.She had repeat Abdominal wall USG yesterday, no need for any I/D as per surgery. Patient condition has improved.She is afebrile, on room air.Abdominal pain, cough and dyspnea has improved.WBC is coming down. She will be discharged home on oral Zyvox, already completed treatment for HCAP Pneumonia. Patient was advised to follow up with her Surgeon and PCP. Management plan was discussed in detail with patient Education was provided.
== END 2017-05-02 17:35 | disposition home or self-care (01) | DRG 856 ==
LOC: ED 00:09 → ERH 06:38 → 2RNO 09:39 → 3RNO 04-30 04:16
PROVIDERS: ADMIT Internal Medicine; ATTEND Internal Medicine
PROC: 0W9F3ZX Drainage of Abdominal Wall, Percutaneous Approach, Diagnostic (ICD-10-PCS; principal; 2017-04-29)
DX: T81.4XXA Infection following a procedure, initial encounter (principal); A41.9 Sepsis, unspecified organism; R65.20 Severe sepsis without septic shock; J18.9 Pneumonia, unspecified organism; N17.9 Acute kidney failure, unspecified; L02.211 Cutaneous abscess of abdominal wall; I10 Essential (primary) hypertension; B00.9 Herpesviral infection, unspecified; B95.0 Streptococcus, group A, as the cause of diseases classified elsewhere; E66.9 Obesity, unspecified; E78.5 Hyperlipidemia, unspecified; Z68.33 Body mass index [BMI] 33.0-33.9, adult; Y84.8 Other medical procedures as the cause of abnormal reaction of the patient, or of later complication, without mention of misadventure at the time of the procedure